=== PATIENT | male | born 1960 | race Caucasian/White ===

== ENCOUNTER 2019-08-19 10:28 | Inpatient (IN) | payer BC ==
[~2019-08-19] VITALS: Ht 175.3 cm; Wt 76.2 kg
--- NOTE | ~2019-08-19 | PROC ---
[address] [address] PROCEDURE REPORT Name: JARETH MIKE Room: [address] IN M.R.#: [id number] Admission: 08/19/19 Attend Phys: Gordon Milligan, Discharge: Date of : 60 Report #: [id number] THIS REPORT FOR: //name// For GI report, please see the Provation report in Perceptive 7 content. By: 0653Medical Records Staff CHARLES /GIDEON
[2019-08-19 10:40] VITALS: BP 143/86
[2019-08-19 10:51] LABS: ICTOTEST (BILI CONFIRMATORY) Negative (Negative); URINE BILIRUBIN 2+ (Negative); URINE BLOOD NEGATIVE (Negative); URINE CLARITY CLEAR; URINE COLOR YELLOW; URINE GLUCOSE-RANDOM NEGATIVE (Negative); URINE KETONES 2+ (Negative); URINE LEUKOCYTES-REFLEX NEGATIVE (Negative); URINE NITRITE-REFLEX NEGATIVE (Negative); URINE PROTEIN 1+ (Negative); URINE SPECIFIC GRAVITY >= 1.030 (1.005-1.030)
[2019-08-19 10:54] LABS: BACTERIA-REFLEX 1-9 Few /HPF (None Seen); CASTS None Seen /LPF (None Seen); CRYSTALS None Seen /LPF (None Seen); MUCUS None Seen strn/LPF (None Seen); SQUAMOUS 4-10 Moderate /LPF (0-3); URINE RBC 0-2 Rare /HPF (0-2); URINE WBC-REFLEX 0-5 Rare /HPF (0-5)
[2019-08-19 10:59] LABS: ABSOLUTE EOSINOPHILS 0.1 thou/uL (0.0-0.7); ABSOLUTE MONOCYTES 1.1 thou/uL (0.0-1.2); ABSOLUTE NEUTROPHILS 8.1 thou/uL (1.6-8.1); BASOPHILS 0.3 %; EOSINOPHILS 0.9 %; HEMATOCRIT 44.7 % (42.0-52.0); HEMOGLOBIN 15.6 gm/dL (14.0-18.0); LYMPHOCYTES 17.3 %; MCH 34.1 pg (26.0-34.0); MCHC 34.9 g/dL (28.0-37.0); MCV 97.8 fL (80.0-100.0); MONOCYTES 9.6 %; MPV 7.7 fl. (7.2-11.1); NUCLEATED RBCS 0 /100WBC; PLATELET COUNT* 313 thou/uL (150-400); POLYS 71.9 %; RBC 4.58 mil/uL (4.50-6.00); RDW-CV 13.8 % (10.5-14.5); WBC 11.3 thou/uL (4.0-11.0)
[2019-08-19 11:30] LABS: ALBUMIN 4.1 g/dL (3.4-5.0); CALCIUM 9.2 mg/dL (8.5-10.1); POTASSIUM 4.3 mmol/L (3.5-5.1); TOTAL BILIRUBIN 1.1 mg/dL (<0.1-1.0); TOTAL PROTEIN 7.9 g/dL (6.4-8.2)
[2019-08-19 13:46] VITALS: BP 133/98
[2019-08-19 14:30] VITALS: BP 137/90
--- NOTE | 2019-08-19 14:38 | EKG ---
[place] [address] ELECTROCARDIOGRAM REPORT Name: JARETH MIKE Room: [address] ADM IN .R.#: [id number] Admission: 08/19/19 Attend Phys: Gordon Milligan, Discharge: Date of : 60 Report #: [id number] THIS REPORT FOR: //name// [facility] ED Test Date: 2019-08-19 Test Time: 11:11:26 Pat Name: JARETH MIKE Department: Room: [facility] Gender: M Medical Assistant Internal Medicine: AINSLEY : 1960 Requested By: Bhargavi Mendez Order Number: [id number] MD: Rafa Varela Measurements Intervals [place] Rate: 79 P: 39 MD: 145 QRS: 19 QRSD: 98 T: 15 QT: 376 QTc: 432 Interpretive Statements Sinus rhythm Probable left atrial enlargement RSR' in V1 or V2, right VCD No previous ECG available for comparison Electronically Signed On 08-19-2019 14:38:38 CDT by Rafa Varela [email or web address] <ELECTRONICALLY SIGNED> By: Rafa Varela MD, [facility] 08/19/19 1438 1111 1111 Rafa Varela MD, FACC /EPI
[2019-08-19 21:01] VITALS: BP 123/82
[2019-08-20 05:13] LABS: HEMATOCRIT 39.7 % (42.0-52.0); MCH 33.5 pg (26.0-34.0); MCHC 33.9 g/dL (28.0-37.0); MCV 98.9 fL (80.0-100.0); MPV 8.7 fl. (7.2-11.1); RBC 4.01 mil/uL (4.50-6.00); RDW-CV 14.3 % (10.5-14.5); WBC 7.7 thou/uL (4.0-11.0)
[2019-08-20 05:16] LABS: HEMOGLOBIN 13.5 gm/dL (14.0-18.0)
[2019-08-20 05:20] LABS: ALBUMIN 3.5 g/dL (3.4-5.0); CALCIUM 8.7 mg/dL (8.5-10.1); CREATININE 0.8 mg/dL (0.6-1.3); MAGNESIUM 2.3 mg/dL (1.8-2.4); POTASSIUM 4.2 mmol/L (3.5-5.1); TOTAL BILIRUBIN 1.1 mg/dL (<0.1-1.0); TOTAL PROTEIN 6.6 g/dL (6.4-8.2)
[2019-08-20 07:30] VITALS: BP 123/83
[2019-08-20 20:00] VITALS: BP 146/93
[2019-08-21 04:44] LABS: CALCIUM 8.5 mg/dL (8.5-10.1); CREATININE 0.7 mg/dL (0.6-1.3); MAGNESIUM 2.2 mg/dL (1.8-2.4); POTASSIUM 4.2 mmol/L (3.5-5.1)
[2019-08-21 11:24] VITALS: BP 146/93
[2019-08-21 16:15] VITALS: BP 137/79
[2019-08-21 20:30] VITALS: BP 122/78
[2019-08-22 03:49] LABS: HEMOGLOBIN 12.2 gm/dL (14.0-18.0); MCH 33.5 pg (26.0-34.0); MCHC 33.9 g/dL (28.0-37.0); MCV 98.8 fL (80.0-100.0); MPV 7.8 fl. (7.2-11.1); RBC 3.65 mil/uL (4.50-6.00); RDW-CV 13.5 % (10.5-14.5); WBC 8.2 thou/uL (4.0-11.0)
[2019-08-22 04:03] LABS: CALCIUM 8.1 mg/dL (8.5-10.1); CREATININE 0.8 mg/dL (0.6-1.3)
[2019-08-22 07:40] VITALS: BP 138/74
[2019-08-22 17:24] VITALS: BP 135/79
[2019-08-22 19:15] VITALS: BP 139/85
[2019-08-23 05:06] LABS: ALBUMIN 2.8 g/dL (3.4-5.0); CALCIUM 8.2 mg/dL (8.5-10.1); CREATININE 0.8 mg/dL (0.6-1.3); PHOSPHORUS* 2.7 mg/dL (2.5-4.9); POTASSIUM 3.7 mmol/L (3.5-5.1)
[2019-08-23 07:20] VITALS: BP 115/69
[2019-08-23 12:59] VITALS: BP 146/93
--- NOTE | 2019-08-23 17:06 | PATH ---
[address] [address] PATHOLOGY RPT PROCEDURE Name: JUSTIN CLINE Room: [address] IN .R.#: [id number] Admission: 08/19/19 Date of : 60 Discharge: Report #: [id number] Path Case #: [id number] [facility] Accession Number: [id number] . 01 Material submitted: . hepatic flexure - BIOPSY HEPATIC FLEXURE MASS . 01 Clinical history: . None provided . 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 SEE COMMENT. . (DANY:pit; 08/23/2019) QTP 08/23/2019 1439 Local . 02 Comment: Reviewed with Dr. Jana Webb who agrees with the diagnosis. Dr. Campos notified on afternoon of 08/23/2019. (DANY:pit; 08/23/2019) . 02 Electronically signed: . Yosef Crowell MD, Pathologist NPI- [id number] . 01 Gross description: . The specimen is received in formalin, labeled "Justin Cline, biopsy hepatic flexure mass" and consists of multiple soft friable fragments of pink-cortez tissue measuring 1.4 x 0.7 x 0.3 cm in aggregate which are entirely submitted in A1. (SDY; 08/22/2019) SYU/SYU 08/22/2019 1506 Local . 02 Pathologist provided ICD-10: C18.3, D12.3, K63.3 . 02 CPT . 108055 Specimen Comment: A courtesy copy of this report has been sent to [phone] Specimen Comment: [phone] Specimen Comment: Report sent to / DR BROOKS Performed at: [address], [place] [id number] [place] [address] PATHOLOGY RPT PROCEDURE Name: JUSTIN CLINE Room: [address] IN .R.#: [id number] Admission: 08/19/19 Date of : 60 Discharge: Report #: [id number] Path Case #: [id number] MD David Whitmore MD Phone: [phone] Performed at: 02 [facility] [address], [place], [place] [id number] MD Yosef Crowell MD Phone: [phone]
[2019-08-23 18:20] VITALS: BP 119/73
[2019-08-23 21:41] VITALS: BP 105/72
[2019-08-24 00:25] VITALS: BP 102/66
[2019-08-24 04:21] VITALS: BP 109/76
[2019-08-24 04:31] LABS: HEMATOCRIT 37.3 % (42.0-52.0); HEMOGLOBIN 12.5 gm/dL (14.0-18.0); MCH 33.4 pg (26.0-34.0); MCHC 33.6 g/dL (28.0-37.0); MCV 99.3 fL (80.0-100.0); MPV 8.1 fl. (7.2-11.1); RBC 3.76 mil/uL (4.50-6.00); RDW-CV 13.7 % (10.5-14.5); WBC 8.8 thou/uL (4.0-11.0)
[2019-08-24 04:49] LABS: ALBUMIN 2.6 g/dL (3.4-5.0); CALCIUM 8.7 mg/dL (8.5-10.1); CREATININE 0.9 mg/dL (0.6-1.3); PHOSPHORUS* 4.6 mg/dL (2.5-4.9); POTASSIUM 4.8 mmol/L (3.5-5.1)
[2019-08-24 07:25] VITALS: BP 107/67
[2019-08-24 16:47] VITALS: BP 111/68
[2019-08-24 19:28] VITALS: BP 114/77
[2019-08-24 23:04] VITALS: BP 106/71
[2019-08-25 05:50] VITALS: BP 124/81
[2019-08-25 07:40] VITALS: BP 113/80
--- NOTE | 2019-08-25 08:58 | CON ---
[address] [address] CONSULTATION Name: JARETH MIKE Room: [address] IN .R.#: [id number] Admission: 08/19/19 Attend Phys: Gordon Milligan, Discharge: Date of : 60 Report #: [id number] THIS REPORT FOR: //name// CC: Mehrdad Milligan DATE OF SERVICE: 08/22/2019 REASON FOR CONSULTATION: Colon mass. REQUESTING PHYSICIAN: Dr. Gordon Milligan. HISTORY OF PRESENT ILLNESS: The patient is a pleasant 59-year-old man without significant past medical history who developed abdominal bloating, occasional nausea and vomiting last week. He went to see primary care physician, Dr. Mckinley. Dr. Mckinley was not available. Dr. Mckinley's partner evaluated him and sent him to the Emergency Room. He had an abdominal CT scan in the hospital, which showed possible mass in the hepatic flexure. The patient was admitted to the hospital. GI was consulted. He had a colonoscopy yesterday, which showed some circumferential lesion in the hepatic flexure. Biopsy was done. Pathology pending status post stent was deployed. Surgical consult and oncology consult was requested. He has been evaluated by Dr. Kraft. He is scheduled to have surgery tomorrow. He is doing quite well. He does not have complaints of nausea or vomiting today. He has complaints of abdominal bloating, but no significant pain or fever. Denies weight loss. PAST MEDICAL HISTORY: Unremarkable other than smoking for more than 40 years. SOCIAL HISTORY: He is single, does not have children, and lives alone. He smokes a pack a day, has been smoking since teenage years. He does not drink alcohol excessively, he tells me. 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 FAMILY HISTORY: Positive for colon cancer in mother. Mother had colon cancer more than 10 years ago, had a colonoscopy at that time. He says his mother did well, did not of colon cancer. She is alive. There is no other family history of other cancers. REVIEW OF SYSTEMS: HEENT: Negative. CARDIOVASCULAR: No chest pain or palpitations. RESPIRATORY: No shortness of breath. GASTROINTESTINAL: See above. GENITOURINARY: No dysuria. NEUROLOGIC: Negative. PSYCHIATRIC: Negative. [place]IN: [place] [address] CONSULTATION Name: JARETH MIKE Room: [address]#: [id number] Admission: 08/19/19 Attend Phys: Gordon Milligan, Discharge: Date of : 60 Report #: [id number] HEMATOLOGICAL: No bleeding, bruising. PHYSICAL EXAMINATION: GENERAL: Reveals thin man, not in acute distress. VITAL SIGNS: Blood pressure 138/74, heart rate is 68, temperature 98.3, respirations 18. HEENT: Does not reveal thrush. NECK: Supple. CARDIAC: Normal S1, S2. LUNGS: Clear. ABDOMEN: Somewhat distended, but no rebound, no guarding. MENTAL STATUS: Alert and oriented x 3. SKIN: No rash. There is no peripheral lymphadenopathy. LABORATORY DATA: White count 8.2, hemoglobin 12.2, platelets 240, MCV 98.8, RDW 13.3. Sodium 138, potassium 4.2, BUN 19, creatinine 0.8. LFTs normal. CEA is pending. Pathology pending. CT of abdomen and pelvis reviewed, does not show convincing evidence of metastatic disease, shows mass in the hepatic flexure and there is distention of small bowel or proximal colon. ASSESSMENT AND PLAN: Colon mass clinically very suspicious for colon cancer. Pathology not available. We discussed prognosis and treatment options of colon cancer, preliminary review. We discussed staging of colon cancer, discussed indications for adjuvant chemotherapy. He had some questions, questions were answered. I am planning to see him after surgery when final staging is available. At that time, I will give him final recommendations regarding adjuvant therapy and prognosis. CEA is pending. There are no signs of iron deficiency anemia. Thank you very much for allowing me to participate in the care of this patient. <ELECTRONICALLY SIGNED> By: Tucker Ortiz MD 08/25/19 0858 1206 [id number] Ortiz MD /nt
[2019-08-25 11:07] LABS: ALBUMIN 2.4 g/dL (3.4-5.0); CALCIUM 8.5 mg/dL (8.5-10.1); PHOSPHORUS* 5.5 mg/dL (2.5-4.9); POTASSIUM 4.9 mmol/L (3.5-5.1)
[2019-08-25 11:23] LABS: CREATININE 1.9 mg/dL (0.6-1.3)
[2019-08-25 16:08] LABS: HEMATOCRIT 43.9 % (42.0-52.0); HEMOGLOBIN 14.7 gm/dL (14.0-18.0); MCH 33.6 pg (26.0-34.0); MCHC 33.4 g/dL (28.0-37.0); MCV 100.7 fL (80.0-100.0); MPV 9.4 fl. (7.2-11.1); RBC 4.36 mil/uL (4.50-6.00); RDW-CV 14.2 % (10.5-14.5); WBC 11.3 thou/uL (4.0-11.0)
[2019-08-25 20:36] VITALS: BP 115/81
[2019-08-26] VITALS: BP 98/74
[2019-08-26 03:57] VITALS: BP 103/74
[2019-08-26 04:31] LABS: HEMATOCRIT 45.2 % (42.0-52.0); HEMOGLOBIN 15.4 gm/dL (14.0-18.0); MCH 33.9 pg (26.0-34.0); MCV 99.9 fL (80.0-100.0); MPV 8.8 fl. (7.2-11.1); RBC 4.53 mil/uL (4.50-6.00); RDW-CV 13.8 % (10.5-14.5); WBC 10.8 thou/uL (4.0-11.0)
[2019-08-26 04:41] LABS: ALBUMIN 2.1 g/dL (3.4-5.0); MAGNESIUM 1.8 mg/dL (1.8-2.4); PHOSPHORUS* 8.2 mg/dL (2.5-4.9); POTASSIUM 5.3 mmol/L (3.5-5.1)
[2019-08-26 04:42] LABS: CREATININE 3.9 mg/dL (0.6-1.3)
[2019-08-26 07:20] VITALS: BP 99/75
[2019-08-26 16:33] VITALS: BP 146/93
[2019-08-26 20:15] VITALS: BP 122/61
[2019-08-27] VITALS: BP 116/73
[2019-08-27 04:00] VITALS: BP 120/80
[2019-08-27 05:33] LABS: HEMATOCRIT 36.2 % (42.0-52.0); MCH 33.6 pg (26.0-34.0); MCHC 34.3 g/dL (28.0-37.0); MCV 97.7 fL (80.0-100.0); MPV 8.7 fl. (7.2-11.1); NUCLEATED RBCS 0 /100WBC; PLATELET COUNT* 256 thou/uL (150-400); RBC 3.71 mil/uL (4.50-6.00); WBC 9.6 thou/uL (4.0-11.0)
[2019-08-27 05:36] LABS: HEMOGLOBIN 12.4 gm/dL (14.0-18.0)
[2019-08-27 05:39] LABS: CALCIUM 7.6 mg/dL (8.5-10.1); MAGNESIUM 1.9 mg/dL (1.8-2.4); POTASSIUM 5.6 mmol/L (3.5-5.1)
[2019-08-27 06:14] LABS: CREATININE 2.4 mg/dL (0.6-1.3)
[2019-08-27 06:26] LABS: ABSOLUTE LYMPHOCYTES 0.2 thou/uL (0.8-5.3); ABSOLUTE MONOCYTES 0.2 thou/uL (0.0-1.2); ABSOLUTE NEUTROPHILS 9.2 thou/uL (1.6-8.1); PLATELET ESTIMATE ADEQUATE
[2019-08-27 16:00] VITALS: BP 132/77
[2019-08-27 20:30] VITALS: BP 136/87
[2019-08-28 00:14] VITALS: BP 124/76
[2019-08-28 03:45] VITALS: BP 140/83
[2019-08-28 16:52] VITALS: BP 134/79
[2019-08-28 21:15] VITALS: BP 137/79
[2019-08-28 23:46] VITALS: BP 128/81
[2019-08-29 02:20] VITALS: BP 124/69
[2019-08-29 07:20] VITALS: BP 146/77
[2019-08-29 10:26] LABS: HEMOGLOBIN 11.1 gm/dL (14.0-18.0); MCH 34.1 pg (26.0-34.0); MCHC 34.8 g/dL (28.0-37.0); MPV 7.5 fl. (7.2-11.1); RBC 3.26 mil/uL (4.50-6.00); RDW-CV 14.1 % (10.5-14.5); WBC 10.7 thou/uL (4.0-11.0)
[2019-08-29 10:37] LABS: ALBUMIN 1.5 g/dL (3.4-5.0); CALCIUM 7.8 mg/dL (8.5-10.1); MAGNESIUM 2.3 mg/dL (1.8-2.4); PHOSPHORUS* 2.6 mg/dL (2.5-4.9); POTASSIUM 4.4 mmol/L (3.5-5.1)
[2019-08-29 10:38] LABS: CREATININE 0.7 mg/dL (0.6-1.3)
--- NOTE | 2019-08-29 12:06 | PATH ---
[address] [address] PATHOLOGY RPT PROCEDURE Name: CEEJUSTIN Mayte Room: [address] IN M.R.#: [id number] Admission: 08/19/19 Date of : 60 Discharge: Report #: [id number] Path Case #: [id number] [facility] Accession Number: [id number] . 01 Material submitted: . colon - RIGHT COLON. Modifiers: right . 01 Clinical history: . Pre-op diagnosis: Colon obstruction Post-op diagnosis: Right colon mass . 02 Diagnosis: Colon, right, hemicolectomy: - Invasive moderately to poorly differentiated adenocarcinoma, 3.5 cm. - Tumor location: Hepatic flexure. - Adenocarcinoma invades through the muscularis propria and into the pericolonic adipose tissue. - Margins of excision: Negative; closest mucosal margin is distal which is 7.0 cm away. - Hyperplastic polyp 1.0 cm. - Submucosal lipoma, 1.9 cm. - Appendix with no pathologic diagnosis. - Metastatic adenocarcinoma present in 2 out of 17 pericolonic lymph nodes (2/17). . (Please see synoptic report) . (ZAIN:lizeth; 08/26/2019) . . Surgical Pathology Cancer Case Summary Procedure ___ Right colectomy . Tumor Site ___ Hepatic flexure . Tumor Size Greatest dimension (centimeters): 3.5 cm . Histologic Type ___ Adenocarcinoma . Histologic Grade ___ Other (specify): Poorly differentiated . Tumor Extension ___ Tumor invades through the muscularis propria [place] [address] PATHOLOGY RPT PROCEDURE Name: JUSTIN CLINE Room: [address] IN [facility]#: [id number] Admission: 08/19/19 Date of : 60 Discharge: Report #: [id number] Path Case #: [id number] . Margins ___ All margins are uninvolved by invasive carcinoma Margins examined: Proximal mucosal, distal mucosal, and radial. + Distance of tumor from closest mucosal margin: 7 cm (distal) . Proximal Margin ___ Uninvolved by invasive carcinoma . Distal Margin ___ Uninvolved by invasive carcinoma . Treatment Effect ___ No known presurgical therapy . Lymphovascular Invasion ___ Focal area suspicious for lymphovascular invasion are present . + Perineural Invasion + ___ Not identified . Regional Lymph Nodes Number of Lymph Nodes Involved: 2 Number of Lymph Nodes Examined: 17 . Pathologic Stage Classification (pTNM, AJCC 8th Edition) Primary Tumor (pT) ___ pT3: Tumor invades through the muscularis propria into the pericolorectal tissues . Regional Lymph Nodes (pN) ___ pN1: Regional lymph node metastasis (1-3 regional lymph nodes are positive) MBR 08/29/2019 1152 Local . 02 Electronically signed: . Lucio Yousif MD, Pathologist NPI- [id number] . 01 Gross description: . The specimen is received in formalin, labeled "Justin Cline, right colon". Received is a right hemicolectomy specimen consisting of a segment of small bowel measuring 12.1 cm in length by 2.9 cm in diameter contiguous with a segment of colon measuring 13.8 cm in length and ranges in diameter from 2.8 to 5.5 cm. Both margins are stapled closed. The serosal surface of the small bowel is pink-edmonds and glistening in appearance. The serosal surface of the colon is pink-cortez to cortez-edmonds and glistening in appearance. The attached pericolic fat measures up to 5.5 [place] [address] PATHOLOGY RPT PROCEDURE Name: JUSTIN CLINE Room: [address] IN ..#: [id number] Admission: 08/19/19 Date of : 60 Discharge: Report #: [id number] Path Case #: [id number] cm in thickness. The mesenteric margin is inked orange. There are two blue wire stents present, which are attached suture to each other and one of which is loosely attached to the colonic mucosa, measuring 10.2 cm in length by 3.0 cm in diameter each. Near the distal margin, there is a moderate amount of attached omentum measuring 6.1 x 2.5 x 2.0 cm. The specimen is opened along the antimesenteric line and placed into formalin for overnight fixation prior to sectioning. (CAA; 08/24/2019) . After adequate overnight fixation, further opening of the specimen reveals light cortez to pink-cortez, slightly edematous-appearing mucosa within the small bowel. The ileocecal valve is light cortez in appearance. 3.1 cm distal to the ileocecal valve, there is a well-circumscribed, focally ulcerated light brown lesion measuring 3.5 x 2.5 cm, which is 7.0 cm from the closest margin (distal) and 15.2 cm from the proximal margin. The opposing serosal and fatty surfaces are inked black. Sectioning reveals the mass to grossly extend through the muscularis propria and grossly approach the inked serosal surface, as well as adjacent omentum, with a maximum depth of invasion of 1.6 cm. The mass is 5.0 cm from the mesenteric margin. 2.1 cm proximal to the mass, there is a well-circumscribed, raised and pink-cortez possible polyp measuring 1.0 x 0.6 cm, which is 1.5 cm distal to the ileocecal valve. 1.5 cm distal to the mass, there is a second light cortez, edematous-appearing possible polyp measuring 1.9 x 1.7 cm. The opposing fatty surface of this possible polyp is inked blue. The remainder of the colonic mucosa is light cortez to pink-cortez in appearance with slightly edematous-appearing architectural folds. . The appendix is present measuring 6.3 cm in length by 1.0 cm in diameter. Sectioning through the appendix reveals a pinpoint to patent lumen. Also received within the specimen container is a separate the submitted segment of yellow-cortez omentum measuring 13.5 x 5.9 x 1.5 cm in greatest dimensions. Sectioning reveals pale-cortez, lobulated cut surfaces with no grossly distinct nodules or lesions. Dissection and palpation of the attached pericolic fat reveals 16 readily identifiable lymph nodes ranging in size from 0.4 to 1.6 cm in maximum dimensions. The specimen is submitted representatively as follows: . A1 proximal margin, en face A2 distal margin, en face A3 perpendicular section through mesenteric margin (orange ink) A4 traveling representative section of mass to show relationship with inked serosal surface and adjacent omentum A5 traveling representative section of mass to show relationship with adjacent omentum A6-A8 additional traveling representative sections of mass A9 edematous polyp proximal to mass, bisected A10-A12 traveling representative sections of possible polyp distal to mass A13 small [place] [address] PATHOLOGY RPT PROCEDURE Name: JUSTIN CLINE Room: [address] IN [facility]#: [id number] Admission: 08/19/19 Date of : 60 Discharge: Report #: [id number] Path Case #: [id number] A14 ileocecal valve A15 uninvolved colonic mucosa A16 traveling representative sections of omentum A17-A18 traveling representative sections of appendix, to include proximal margin and bisected tip A19-A21 intact lymph nodes A22-A25 one bisected lymph node in each cassette. (CAA; 08/25/2019) QAC/QA 08/29/2019 1152 Local . 02 Pathologist provided ICD-10: C18.3, K63.5, D17.5, C77.2 . 02 CPT . 669115 Specimen Comment: A courtesy copy of this report has been sent to [phone] Specimen Comment: [phone], Specimen Comment: Report sent to ,DR ALARCON / DR BROOKS Performed at: [address], [place], [place] [id number] MD David Whitmore MD Phone: [phone] Performed at: 02 [facility] [address], [place], [place] [id number] MD Yosef Crowell MD Phone: [phone]
[2019-08-29 18:24] VITALS: BP 147/92
[2019-08-29 19:24] VITALS: BP 154/94
[2019-08-30 05:58] LABS: HEMOGLOBIN 10.9 gm/dL (14.0-18.0); MCH 33.5 pg (26.0-34.0); MCHC 34.1 g/dL (28.0-37.0); MPV 7.6 fl. (7.2-11.1); RBC 3.26 mil/uL (4.50-6.00); RDW-CV 14.1 % (10.5-14.5); WBC 13.8 thou/uL (4.0-11.0)
[2019-08-30 06:13] LABS: ALBUMIN 1.4 g/dL (3.4-5.0); CALCIUM 7.8 mg/dL (8.5-10.1); CREATININE 0.7 mg/dL (0.6-1.3); MAGNESIUM 1.9 mg/dL (1.8-2.4); PHOSPHORUS* 3.1 mg/dL (2.5-4.9); POTASSIUM 4.4 mmol/L (3.5-5.1)
[2019-08-30 07:48] VITALS: BP 150/90
[2019-08-30 16:00] VITALS: BP 115/66
[2019-08-30 20:37] VITALS: BP 153/92
[2019-08-30 23:14] VITALS: BP 147/92
[2019-08-31 06:59] LABS: HEMATOCRIT 33.5 % (42.0-52.0); HEMOGLOBIN 11.4 gm/dL (14.0-18.0); MCH 33.3 pg (26.0-34.0); MCHC 34.2 g/dL (28.0-37.0); MCV 97.6 fL (80.0-100.0); MPV 7.6 fl. (7.2-11.1); RBC 3.43 mil/uL (4.50-6.00); WBC 15.3 thou/uL (4.0-11.0)
[2019-08-31 07:09] LABS: ALBUMIN 1.5 g/dL (3.4-5.0); CALCIUM 7.9 mg/dL (8.5-10.1); CREATININE 0.6 mg/dL (0.6-1.3); PHOSPHORUS* 3.4 mg/dL (2.5-4.9); POTASSIUM 4.5 mmol/L (3.5-5.1)
[2019-08-31 08:20] VITALS: BP 138/89
[2019-08-31 20:07] VITALS: BP 137/84
[2019-09-01 04:05] VITALS: BP 128/83
[2019-09-01 04:31] LABS: HEMATOCRIT 33.7 % (42.0-52.0); HEMOGLOBIN 11.3 gm/dL (14.0-18.0); MCH 32.8 pg (26.0-34.0); MCHC 33.7 g/dL (28.0-37.0); MCV 97.3 fL (80.0-100.0); MPV 7.7 fl. (7.2-11.1); RBC 3.46 mil/uL (4.50-6.00); RDW-CV 14.1 % (10.5-14.5); WBC 14.9 thou/uL (4.0-11.0)
[2019-09-01 04:50] LABS: ALBUMIN 1.5 g/dL (3.4-5.0); CALCIUM 7.9 mg/dL (8.5-10.1); CREATININE 0.7 mg/dL (0.6-1.3); PHOSPHORUS* 3.7 mg/dL (2.5-4.9); POTASSIUM 4.4 mmol/L (3.5-5.1)
[2019-09-01 07:15] VITALS: BP 135/80
--- NOTE | 2019-09-01 11:57 | CON ---
[address] [address] CONSULTATION Name: JARETH MIKE Room: [address] IN .R.#: [id number] Admission: 08/19/19 Attend Phys: Gordon Milligan, Discharge: Date of : 60 Report #: [id number] THIS REPORT FOR: //name// CC: Mehrdad Milligan DATE OF SERVICE: 08/31/2019 ATTENDING PHYSICIAN: Dr. Frey REASON FOR EVALUATION: Suspected intra-abdominal infection postoperative partial colectomy. HISTORY OF PRESENT ILLNESS: Chart reviewed, the patient examined. This is a 59-year-old without significant medical history who presented on 08/19/2019, with abdominal pain and pressure for roughly 1 week prior, had been experiencing emesis as well, poor p.o. intake, was evaluated including imaging, which showed diffuse distention of the small bowel and proximal colon. There is a question of narrowing and partial obstruction. Due to concern about possible mass, did undergo evaluation by Surgery who did proceed with laparoscopic right hemicolectomy with ileocolonic anastomosis. Path confirmed adenocarcinoma, moderately differentiated. Postop course was complicated by perforated small bowel with a second surgery, exploratory laparotomy with oversewing of small bowel perforation on 08/26/2019, seen postop, been maintained n.p.o., has a nasogastric tube in place, formerly been on increasing abdominal distention. Empirically started on piperacillin and tazobactam. He has not had documented fevers, hemodynamically is relatively stable. He is not overtly encephalopathic, some kzxq-hr-ajszaowp distress. ALLERGIES: None known. MEDICATIONS: Include Zosyn now, diphenhydramine, lorazepam, ondansetron, enoxaparin, hydromorphone and fentanyl as needed. PAST MEDICAL HISTORY: Previous left finger surgery, right arm tendon repair. SOCIAL HISTORY: Smokes a pack a day of cigarettes, occasional ethanol, no illicit drug use. FAMILY HISTORY: Noncontributory. REVIEW OF SYSTEMS: Significant pulmonary-related complaints, otherwise, unremarkable. PHYSICAL EXAMINATION: GENERAL: He appears somewhat chronically ill, [place] [address] CONSULTATION Name: JARETH MIKE Mayte Room: [address]#: [id number] Admission: 08/19/19 Attend Phys: Gordon Milligan, Discharge: Date of : 60 Report #: [id number] VITAL SIGNS: Temperature 97.8, pulse 84, respirations 18, blood pressure is 138/89. SKIN: Warm, dry, no rashes. HEENT: Normocephalic. Extraocular muscles intact. NECK: Supple. LUNGS: Somewhat diminished overall, few scattered crackles at the bases. HEART: Regular, may have soft systolic murmur. ABDOMEN: Distended, mildly firm. There is some tenderness because of overt peritoneal signs. There are stab wounds from the laparoscopy. GENITOURINARY: Deferred. RECTAL: Deferred. LABORATORY DATA: Prealbumin is 16.4. Electrolytes: Sodium 137, potassium 4.5, chloride 103, bicarbonate is 26, anion gap of 8, BUN and creatinine 22 and 0.6, glucose of 93, albumin 1.5. Estimated GFR 138. CBC: White count of 15.3, H and H of 11.4 and 33.5, platelets of 268. Path reviewed as described above. Right colon showed moderately to poorly differentiated adenocarcinoma extended through the muscularis propria into the pericolonic adipose tissue, metastatic adenocarcinoma present, 2/17 pericolonic lymph nodes. There are no available cultures. ASSESSMENT: Postop small bowel perforation. At this point, I think given the complexity of his situation as well as the likely lack of reserve, would continue empiric therapy. Piperacillin and tazobactam will give us reasonable coverage. At this point, there is no evidence of intra-abdominal abscess. We will see how he does clinically, advance his diet as allowed. We will add incentive spirometry. He is certainly at risk for nosocomial related infectious complications. Thank you. We will follow. <ELECTRONICALLY SIGNED> By: Josue Oconnor MD 09/01/19 1157 1554 [id number] Oconnor MD /nt
[2019-09-01 14:35] VITALS: BP 135/80
[2019-09-01 16:11] VITALS: BP 132/81
[2019-09-01 20:00] VITALS: BP 136/89
[2019-09-01 22:51] VITALS: BP 131/77
[2019-09-02 06:00] VITALS: BP 136/83
[2019-09-02 06:45] LABS: HEMATOCRIT 31.1 % (42.0-52.0); HEMOGLOBIN 10.6 gm/dL (14.0-18.0); MCH 33.2 pg (26.0-34.0); MCV 97.7 fL (80.0-100.0); MPV 7.9 fl. (7.2-11.1); NUCLEATED RBCS 0 /100WBC; PLATELET COUNT* 330 thou/uL (150-400); RBC 3.18 mil/uL (4.50-6.00); WBC 15.9 thou/uL (4.0-11.0)
[2019-09-02 07:10] VITALS: BP 135/86
[2019-09-02 07:12] LABS: ABSOLUTE EOSINOPHILS 0.8 thou/uL (0.0-0.7); ABSOLUTE LYMPHOCYTES 1.9 thou/uL (0.8-5.3); ABSOLUTE MONOCYTES 0.8 thou/uL (0.0-1.2); ABSOLUTE NEUTROPHILS 12.4 thou/uL (1.6-8.1); ALBUMIN 1.3 g/dL (3.4-5.0); ANISOCYTOSIS 1+; CALCIUM 7.7 mg/dL (8.5-10.1); CREATININE 0.7 mg/dL (0.6-1.3); PLATELET ESTIMATE ADEQUATE; POIKILOCYTOSIS 1+; POTASSIUM 4.4 mmol/L (3.5-5.1); TOTAL BILIRUBIN 0.5 mg/dL (<0.1-1.0); TOTAL PROTEIN 5.4 g/dL (6.4-8.2)
--- NOTE | 2019-09-02 11:11 | CON ---
[address] [address] CONSULTATION Name: JARETH MIKE Room: [address] IN ..#: [id number] Admission: 08/19/19 Attend Phys: Gordon Milligan, Discharge: Date of : 60 Report #: [id number] THIS REPORT FOR: //name// CC: Mehrdad Milligan DATE OF SERVICE: 08/20/2019 HISTORY OF PRESENT ILLNESS: This is a pleasant 59-year-old male with family history of colon cancer who is presenting with abdominal distention. The patient reports the distention began about 1 week back and have progressively worsened over this time. The patient reports associated and subjective sensation of fever and chills as well as abdominal pain. The patient reports nausea and vomiting, and loose stools about 4-5 times per day over the last week. PAST MEDICAL HISTORY: Nonsignificant. PAST SURGICAL HISTORY: He had a left finger surgery, right arm tendon repair. SOCIAL HISTORY: The patient reports smoking a pack of cigarettes every day. Takes alcohol about once a month. Denies any recreational drugs. FAMILY HISTORY: The patient's mother was diagnosed with colon cancer. The patient reports that he had a colonoscopy more than 10 years back and that was normal. REVIEW OF SYSTEMS: Negative except for what was mentioned in the HPI. PHYSICAL EXAMINATION: GENERAL: The patient is alert, awake, oriented x 3. HEENT: Pupils are equal, round, reactive to light and accommodation. Mucous membranes are moist. There is no congestion. LUNGS: Clear to auscultation bilaterally. CARDIOVASCULAR: Rate and rhythm regular, S1, S2 present. ABDOMEN: Soft. There is no distention, guarding or rigidity. EXTREMITIES: Warm, well perfused. LABORATORY DATA: Hemoglobin 15.6, hematocrit 44.7, platelet count 313, WBC count 11.3. Sodium 134, potassium 4.3, chloride 96, bicarbonate 27, BUN 22, creatinine 1, total bilirubin 1.1, AST 22, ALT 28, alkaline phosphatase 75. IMAGING: Abdomen and pelvis CT, this demonstrates the presence of diffuse distention of the small bowel and proximal colon suspicious with an apple core lesion in the proximal hepatic flexure, moderate formed stool [place] [address] CONSULTATION Name: JARETH MIKE Room: [address] IN [facility]#: [id number] Admission: 08/19/19 Attend Phys: Gordon Milligan, Discharge: Date of : 60 Report #: [id number] ASSESSMENT AND PLAN: A pleasant 59-year-old male with family history of colon cancer, history of smoking, who presents with abdominal distention. The patient was found to have a possible apple core lesion in the hepatic flexure. We will need to perform colonoscopy with possible stenting and make further recommendations based on the results of the procedure. <ELECTRONICALLY SIGNED> By: Rip Campos MD 09/02/19 1111 1430 1447Rip Campos MD /nimo
[2019-09-02 15:28] VITALS: BP 125/82
[2019-09-02 19:55] VITALS: BP 134/85
[2019-09-03 01:00] VITALS: BP 130/74
[2019-09-03 06:00] VITALS: BP 135/84
[2019-09-03 07:10] VITALS: BP 123/79
[2019-09-03 20:02] VITALS: BP 141/82
[2019-09-04 07:44] VITALS: BP 110/64
[2019-09-04 09:52] LABS: HEMATOCRIT 32.2 % (42.0-52.0); MCH 33.2 pg (26.0-34.0); MCV 97.4 fL (80.0-100.0); MPV 8.5 fl. (7.2-11.1); RBC 3.31 mil/uL (4.50-6.00); RDW-CV 14.3 % (10.5-14.5); WBC 24.4 thou/uL (4.0-11.0)
[2019-09-04 10:06] LABS: CALCIUM 7.6 mg/dL (8.5-10.1); CREATININE 0.7 mg/dL (0.6-1.3); POTASSIUM 4.3 mmol/L (3.5-5.1)
[2019-09-04 16:00] VITALS: BP 125/74
[2019-09-04 21:06] VITALS: BP 110/73
[2019-09-05] VITALS (15 sets, daily range): BP systolic 72–170; BP diastolic 34–97
[2019-09-05 09:43] LABS: ABSOLUTE EOSINOPHILS 0.1 thou/uL (0.0-0.7); ABSOLUTE LYMPHOCYTES 0.6 thou/uL (0.8-5.3); ABSOLUTE MONOCYTES 0.3 thou/uL (0.0-1.2); ABSOLUTE NEUTROPHILS 10.7 thou/uL (1.6-8.1); BASOPHILS 0.3 %; HEMOGLOBIN 12.1 gm/dL (14.0-18.0); LYMPHOCYTES 5.3 %; MCH 32.5 pg (26.0-34.0); MCHC 33.6 g/dL (28.0-37.0); MCV 96.9 fL (80.0-100.0); MONOCYTES 2.9 %; MPV 8.3 fl. (7.2-11.1); NUCLEATED RBCS 0 /100WBC; POLYS 90.5 %; RBC 3.71 mil/uL (4.50-6.00); WBC 11.8 thou/uL (4.0-11.0)
[2019-09-05 09:44] LABS: PLATELET COUNT* 518 thou/uL (150-400)
[2019-09-05 09:48] LABS: CALCIUM 7.5 mg/dL (8.5-10.1); POTASSIUM 4.5 mmol/L (3.5-5.1)
[2019-09-05 09:51] LABS: ALBUMIN 1.2 g/dL (3.4-5.0); PHOSPHORUS* 2.7 mg/dL (2.5-4.9)
[2019-09-05 10:15] LABS: ALBUMIN 1.2 g/dL (3.4-5.0); CALCIUM 7.6 mg/dL (8.5-10.1); POTASSIUM 4.9 mmol/L (3.5-5.1); TOTAL BILIRUBIN 1.2 mg/dL (<0.1-1.0); TOTAL PROTEIN 4.8 g/dL (6.4-8.2)
[2019-09-05 19:01] LABS: HEMATOCRIT 36.9 % (42.0-52.0); HEMOGLOBIN 12.3 gm/dL (14.0-18.0); MCH 33.1 pg (26.0-34.0); MCHC 33.4 g/dL (28.0-37.0); MPV 8.7 fl. (7.2-11.1); NUCLEATED RBCS 0 /100WBC; RBC 3.73 mil/uL (4.50-6.00); RDW-CV 14.4 % (10.5-14.5); WBC 11.2 thou/uL (4.0-11.0)
[2019-09-05 19:02] LABS: PLATELET COUNT* 437 thou/uL (150-400)
[2019-09-05 19:08] LABS: CREATININE 1.1 mg/dL (0.6-1.3)
[2019-09-05 19:09] LABS: POTASSIUM 6.1 mmol/L (3.5-5.1)
[2019-09-05 19:11] LABS: ALBUMIN 1.2 g/dL (3.4-5.0); PHOSPHORUS* 4.6 mg/dL (2.5-4.9)
[2019-09-05 19:28] LABS: ABSOLUTE EOSINOPHILS 0.1 thou/uL (0.0-0.7); ABSOLUTE LYMPHOCYTES 1.3 thou/uL (0.8-5.3); ABSOLUTE MONOCYTES 0.1 thou/uL (0.0-1.2); ABSOLUTE NEUTROPHILS 9.6 thou/uL (1.6-8.1); METAMYELOCYTES 3 %; MYELOCYTES 3 %; PLATELET ESTIMATE ADEQUATE
[2019-09-05 20:01] LABS: BE -7.7 mmol/L (-2 to +3); PCO2 33.3 mmHg (35.0-45.0); PO2 89.2 mmHg (75.0-100.0)
[2019-09-05 22:10] LABS: CALCIUM 7.2 mg/dL (8.5-10.1); CREATININE 1.2 mg/dL (0.6-1.3); POTASSIUM 5.7 mmol/L (3.5-5.1)
[2019-09-05 22:14] LABS: ALBUMIN 1.2 g/dL (3.4-5.0); PHOSPHORUS* 4.7 mg/dL (2.5-4.9)
[2019-09-06] VITALS (40 sets, daily range): BP systolic 87–111; BP diastolic 50–74
[2019-09-06 05:13] LABS: HEMATOCRIT 35.9 % (42.0-52.0); HEMOGLOBIN 11.9 gm/dL (14.0-18.0); MCH 32.7 pg (26.0-34.0); MCHC 33.2 g/dL (28.0-37.0); MCV 98.3 fL (80.0-100.0); MPV 8.7 fl. (7.2-11.1); RBC 3.65 mil/uL (4.50-6.00); RDW-CV 14.3 % (10.5-14.5); WBC 16.8 thou/uL (4.0-11.0)
[2019-09-06 05:21] LABS: CALCIUM 7.3 mg/dL (8.5-10.1); CREATININE 1.4 mg/dL (0.6-1.3); MAGNESIUM 1.9 mg/dL (1.8-2.4); POTASSIUM 5.2 mmol/L (3.5-5.1)
[2019-09-06 08:27] LABS: BE -6.3 mmol/L (-2 to +3); PCO2 28.2 mmHg (35.0-45.0); PO2 113.5 mmHg (75.0-100.0); pH 7.401 (7.340-7.450)
[2019-09-07] VITALS (36 sets, daily range): BP systolic 98–141; BP diastolic 55–82
[2019-09-07 05:18] LABS: HEMATOCRIT 23.9 % (42.0-52.0); MCH 32.6 pg (26.0-34.0); MCHC 33.6 g/dL (28.0-37.0); MCV 97.1 fL (80.0-100.0); RBC 2.47 mil/uL (4.50-6.00); RDW-CV 14.2 % (10.5-14.5); WBC 12.7 thou/uL (4.0-11.0)
[2019-09-07 05:22] LABS: HEMOGLOBIN 8.1 gm/dL (14.0-18.0)
[2019-09-07 05:28] LABS: ALBUMIN 0.9 g/dL (3.4-5.0); CALCIUM 7.5 mg/dL (8.5-10.1); CREATININE 0.9 mg/dL (0.6-1.3); MAGNESIUM 2.2 mg/dL (1.8-2.4); PHOSPHORUS* 2.1 mg/dL (2.5-4.9); POTASSIUM 3.7 mmol/L (3.5-5.1)
[2019-09-07 05:30] LABS: INR 1.1; PROTIME 11.1 Seconds (9.20-11.50)
--- NOTE | 2019-09-07 08:01 | CON ---
[address] [address] CONSULTATION Name: JARETH MIKE Room: [address] IN M.R.#: [id number] Admission: 08/19/19 Attend Phys: Gordon Milligan, Discharge: Date of : 60 Report #: [id number] THIS REPORT FOR: //name// CC: Mehrdad Milligan REASON FOR CONSULTATION: Respiratory failure. REFERRING PHYSICIAN: Dr. Robertson. HISTORY OF PRESENT ILLNESS: The patient was intubated, on sedation during my visit. I reviewed medical records and discussed with the nursing staff. This is a 59-year-old male patient, who was admitted to this facility on 08/19/2019 with a chief complaint of abdominal pain. Apparently, he saw his primary care physician prior to emergency room visit, who recommended for him to come to the emergency room. In the emergency room, he had a CT scan of the abdomen because of the abdominal complaints. He was found to have a mass in the hepatic flexure in his colon. He was admitted to the hospital and Gastroenterology evaluated him. He underwent colonoscopy and found to have a lesion in the hepatic flexure. A biopsy was done and a stent was placed. The pathology came back as cancer. He ended up going back to the operating room for laparoscopic-assisted right hemicolectomy on 08/23/2019. Then, he had a repeat exploratory laparotomy on 08/26/2019. Yesterday on 09/05/2019, he was taken back to the operating room because of concerns about fascial dehiscence and developing septic shock. He underwent an ileostomy and G-tube placement with a drain placement. He came back to the Intensive Care Unit, intubated, on the ventilator. He was on vasopressors. During my visit, he was on propofol, fentanyl drip, and he was on 12 mcg of Levophed. He opened his eyes when stimulated on the sedation mentioned, but he did not follow commands. No significant secretion per RN. He was on assist control ventilation during my visit. Also during this hospitalization, he was evaluated by Infectious Disease and Neurology, who are following along. PAST MEDICAL HISTORY: Per the records, he smoked for almost 40 years. SOCIAL HISTORY: History of smoking as mentioned above 1 pack per day for 40 years, started smoking when he was a teenager. He does not drink alcohol excessively and does not abuse drugs per the records. PAST SURGICAL HISTORY: He underwent the surgery as mentioned above including 2 laparoscopic surgeries and the wound dehiscence surgery yesterday. FAMILY HISTORY: Cancer in his mother. REVIEW OF SYSTEMS: At this point, not obtainable due [place] [address] CONSULTATION Name: JARETH MIKE Room: [address] IN M.R.#: [id number] Admission: 08/19/19 Attend Phys: Gordon Milligan, Discharge: Date of : 60 Report #: [id number] ALLERGIES: No known drug allergies. MEDICATIONS: He is on potassium supplement and insulin. He is on Lovenox for deep vein thrombosis prophylaxis. He is on DuoNeb. He is on fentanyl and propofol. He is on vasopressors. He is on zolpidem and melatonin. He is on Zosyn and there is an order for TPN. He is on fluconazole. PHYSICAL EXAMINATION: VITAL SIGNS: He was on 12 mcg of Levophed; blood pressure 106/70, O2 saturation on the monitor 99%, pulse rate of 93, and temperature 37.2. GENERAL: Thin gentleman, in no distress. HEENT: Head normocephalic, atraumatic. Pupils are reactive to light, slightly pale with jaundiced; external ears look normal; ET tube in place; moist mucous membrane. NECK: Full range of movement; trachea central; no palpable lymph node. CHEST: Air movement heard bilaterally; some rhonchi at the bases; no wheezes. ABDOMEN: Postsurgical. I did not disturb the dressing. He has a drain, a J-tube, and a wound VAC in place; slightly distended, nontender, but the patient was sedated. EXTREMITIES: Lower extremity, trace edema; no calf tenderness. SKIN: No rash. PSYCHIATRIC: Mood and affect could not be evaluated. NEUROLOGIC: He is sedated. IMAGING: He had multiple imagings done, reports were reviewed, and images of the chest x-ray were reviewed. There is some atelectasis and small effusion at the bases, which had been seen on the previous chest x-ray; ET tube in good position. He had a CT scan of the abdomen and pelvis; please see report for details. IMPRESSION: 1. Acute respiratory failure. 2. Septic shock, on Levophed. 3. Peritonitis. 4. Colon cancer, status post hemicolectomy. 5. Wound dehiscence, status post surgery. 6. History of smoking for 40 years, presumed chronic obstructive pulmonary disease. PLAN: During my visit, we trailed him briefly on pressure-support ventilation. He obviously had increased work of breathing with the use of accessory muscles, although his volumes were in the range of 400-500. Also, he is still in shock. He is still on 12 mcg of Levophed. We aborted the trial for today. We will keep him on the ventilator on the current ventilator setting, which is assist control ventilation. I did discuss with RN. We will go up on the [address] [address] CONSULTATION Name: JARETH MIKE Room: [address] ADM IN M.R.#: [id number] Admission: 08/19/19 Attend Phys: Gordon Milligan, Discharge: Date of : 60 Report #: [id number] given his abdominal surgery and try to wean the propofol down. Hopefully, also we can wean the pressors down. I am going to add steroids for him for presumed chronic obstructive pulmonary disease and to help with the septic shock. I will continue nebulization treatment. He is on antibiotic per Infectious Disease and antifungals too. We will monitor fluid status and avoid fluid overload. We will do a repeat chest x-ray and ABG. I am going to order a weaning trial for tomorrow morning. Thank you for the consult. We will continue to follow along with you. TIME SPENT: Critical care time 35 minutes. <ELECTRONICALLY SIGNED> By: Maylin Mathew MD 09/07/19 0801 0944 [id number] Larson MD /nt
[2019-09-07 09:04] LABS: BE 3.7 mmol/L (-2 to +3); PO2 82.6 mmHg (75.0-100.0); pH 7.476 (7.340-7.450)
--- NOTE | 2019-09-07 19:28 | OP ---
[address] [address] OPERATIVE REPORT Name: JARETH MIKE Room: [address] IN M.R.#: [id number] Admission: 08/19/19 Attend Phys: Gordon Milligan, Discharge: Date of : 60 Report #: [id number] THIS REPORT FOR: //name// CC: Mehrdad Milligan DATE OF SERVICE: 08/23/2019 PROCEDURE PERFORMED: Laparoscopic right hemicolectomy with ileocolonic anastomosis. PREOPERATIVE DIAGNOSES: 1. Large bowel obstruction. 2. Hepatic flexure mass. 3. Liver cyst. POSTOPERATIVE DIAGNOSES: 1. Large bowel obstruction. 2. Hepatic flexure mass. 3. Liver cyst, SURGEON: Dr. Jony Robertson. ESTATE MANAGER: Dr. Darinel Abel. ANESTHESIA: Local. ESTIMATED BLOOD LOSS: 25 mL. COMPLICATIONS: None. SPECIMENS: Right colon and terminal ileum. INDICATIONS: This is a very pleasant 59-year-old gentleman who presented with a large bowel obstruction. He was stented by Gastroenterology and was allowed to decompress. He was also allowed to undergo bowel prep and oral antibiotic therapy. This was explained to the patient that even though we do not have a pathologic diagnosis, he still needs a bowel resection given the obstruction. The risks, benefits and alternatives of the procedure were discussed with the patient. The risks discussed included but were not limited to the risk of bleeding, infection, conversion to open postoperative leak, postoperative abscess, anastomotic leak, damage to any intra-abdominal anatomy including bowel, colon, blood vessels, nerves, liver, kidney, spleen, etc. I explained to the patient that if he does have an anastomotic leak, he will have to have further surgery, the open surgery, need for prolonged hospitalization and it [place] [id number] OPERATIVE REPORT Name: JARETH MIKE Room: [address] IN [facility].#: [id number] Admission: 08/19/19 Attend Phys: Gordon Milligan, Discharge: Date of : 60 Report #: [id number] could be a life altering event. I did quote to him about a 3-5% risk for anastomotic leak with this procedure. We also discussed the risk of needing an ostomy in the future if he does have a leak. The patient had the opportunity to ask questions. Alternatives discussed included no surgery with continued stent management, but this was not recommended for long-term therapy. At the end of the discussion, the patient wished to proceed with surgery. DESCRIPTION OF PROCEDURE: After informed consent was obtained of the above, the patient was taken to the operating room and placed in supine position. General anesthesia was induced. Preprocedure antibiotics were administered and a Johnson catheter was inserted. His arms were tucked. His anterior abdomen was prepped and draped in the usual sterile fashion and a timeout was performed. The procedure began by making a 5 mm supraumbilical incision. The Veress needle was then inserted. Pneumoperitoneum was created. A 5 mm port was passed. The camera was inserted and the abdomen was inspected. On initial inspection, there was a white mass on segment 4B of the liver that was concerning. There was no peritoneal mets. There is no omental mets. The right colon mass was easily identified and this was a region that was very firm upon palpation with the laparoscopic instruments. The abdomen was free of any other findings concerning for distant metastatic spread upon initial inspection. I did consider biopsying the liver mass. However, a preoperative CT scan was consistent with hepatic cyst in the same location. The mass was very soft upon palpation and I did not feel as though this was consistent with a metastasis. Therefore, it was not biopsied. Procedure began by placing more ports. We placed a 5 mm left upper quadrant port, a 5 mm left lower quadrant port and a 5 mm suprapubic port. Next, the terminal ileum was grasped and retracted towards the patient's midline. The lateral attachments were mobilized by taking down the white line of Toldt. The patient had a very short ascending colon. The cecum was mobilized from a lateral to medial perspective by mobilizing the white line of Toldt being sure not to enter the retroperitoneum or to lift the right kidney. The colon was mobilized up towards the hepatic flexure and once up at that hepatic flexure, we then transitioned to the transverse colon. The greater omentum was mobilized off of the transverse colon. The hepatic flexure ligaments were mobilized using extreme caution, each bite we took with the laparoscopic LigaSure. We identified the duodenum and ensured that it was out of the way and out of the grasp of the stapler. We used minimal cautery in this region as possible. The colon was able to be mobilized successfully in this region and was able to be retracted all the way down into the pelvis. The duodenum was easily visualized and protected throughout. We then converted to a mini midline incision. This was done through an approximately 7 cm incision. The incision was carried down to the fascia using electrocautery. The Tony O wound protector was placed. The cecum was grasped [address] [address] OPERATIVE REPORT Name: JARETH MIKE Room: [address] IN [facility].#: [id number] Admission: 08/19/19 Attend Phys: Gordon Milligan, Discharge: Date of : 60 Report #: [id number] and brought up into the field above the patient's wound protector. The proximal transection point was identified on the small bowel. A window was made in the mesentery at the base of the small bowel and a Covidien purple load stapler was used to transect the small bowel at this position. Next, the mesentery was mobilized posteriorly in its position being sure not to devitalize remaining terminal ileum. The distal transection point was identified by transilluminating the middle colic artery. We did take the right branch of the middle colic artery. There are several enlarged lymph nodes in this distribution. The distal transection point was identified distal to the right branch of the middle colic artery and a window was made at this point. The colon was transected using a Covidien purple load stapler. The mesocolon was then scored by transilluminating the vessels and performed an oncologic resection taken in the right branch of the middle colic artery all the way at its base. The mesocolon was scored appropriately and transected using the laparoscopic LigaSure device being sure to cauterize the blood vessels very well. The ileocolic trunk was quite large; therefore, once this was skeletonized, the vessels were clamped with a right angle and suture ligated with a 2-0 silk suture stick tie. This was then transected and this freed the specimen, it was able to be passed off the field. Hemostasis was present. The bowel was then prepared for the anastomosis. The mesentery of the terminal ileum was ensured to not be twisted using extreme caution and checking it several times, the small bowel was oriented to the transverse colon in an isoperistaltic fashion. The antimesenteric borders were approximated using 0 Vicryl sutures. A colotomy was performed and an enterotomy was performed and a Datamolino purple load stapler was used to create a common enterotomy. Before firing the stapler, we did ensure that the bowel was aligned at the antimesenteric borders and that there was no mesentery or mesocolon within the grasp of the stapler. The stapler was fired creating our common enterotomy. The common enterotomy was closed using 3-0 PDS in a continuous running fashion using extreme caution to close every aspect of the common enterotomy. The common enterotomy was then secured using the Lembert sutures over the original suture line. The staple line creating the common enterotomy was also secured using Lembert sutures. The anastomosis did have a pulse on both the mesocolon and the small bowel mesentery. Bowel was viable. Hemostasis was present. It was dunked back within the abdominal cavity. We then planned for closure of the abdomen. The Tony wound protector was removed. Gloves were changed. The fascia was reapproximated in the midline using 0 PDS in a continuous running fashion, taking 0.5 x 0.5 cm advancement. The deep dermal layer at the midline wound was closed using 3-0 Vicryl in an interrupted fashion. All skin incisions were closed using 4-0 Monocryl in a subcuticular fashion. The abdomen was cleaned and dried and Dermabond was applied. The patient tolerated the procedure well. There were no adverse events [address] [address] OPERATIVE REPORT Name: JARETH MIKE Room: [address] IN M.R.#: [id number] Admission: 08/19/19 Attend Phys: Gordon Milligan, Discharge: Date of : 60 Report #: [id number] throughout the course of procedure. He was extubated and transferred to the PACU in stable condition. <ELECTRONICALLY SIGNED> By: Jony Robertson MD 09/07/19 1928 1744 1934Cwilliam Robertson MD /nt
--- NOTE | 2019-09-07 19:28 | OP ---
[facility] [address] [place] [address] OPERATIVE REPORT Name: JARETH MIKE Room: [address] IN .R.#: [id number] Admission: 08/19/19 Attend Phys: Gordon Milligan, Discharge: Date of : 60 Report #: [id number] THIS REPORT FOR: //name// CC: Mehrdad Milligan DATE OF SERVICE: 09/05/2019 PROCEDURES PERFORMED: 1. Reopening of recent laparotomy. 2. Gastrostomy feeding tube placement. 3. End-ileostomy creation. 4. Drain placement. 5. ABTHERA wound VAC placement. PREOPERATIVE DIAGNOSES: 1. Fascial dehiscence. 2. Lactic acidosis. 3. Severe tachycardia. 4. Severe abdominal distention. 5. Obstructing colon cancer, status post right hemicolectomy and subsequent repeat exploratory laparotomy. 6. Stage 3 colon cancer. 7. Severe hypoalbuminemia and protein-calorie malnutrition. 8. Sepsis. POSTOPERATIVE DIAGNOSES: 1. Fascial dehiscence. 2. Lactic acidosis. 3. Severe tachycardia. 4. Severe abdominal distention. 5. Obstructing colon cancer, status post right hemicolectomy and subsequent repeat exploratory laparotomy. 6. Stage 3 colon cancer. 7. Severe hypoalbuminemia and protein-calorie malnutrition. 8. Sepsis. SURGEON: Dr. Robertson. OIL EXPELLER: Dr. Valdez. ANESTHETIC: 1. General. 2. Local. ESTIMATED BLOOD LOSS: Less than [address] [address] OPERATIVE REPORT Name: JARETH MIKE Room: [address] IN M.R.#: [id number] Admission: 08/19/19 Attend Phys: Gordon Milligan, Discharge: Date of : 60 Report #: [id number] URINE OUTPUT: 100 mL. COMPLICATIONS: None. FINDINGS: 1. Severe feculent peritonitis. 2. Liquid enteric contents throughout the abdominal cavity. 3. Complete fascial dehiscence. 4. Stool leaking from a pinpoint hole at the anastomosis. INDICATION FOR PROCEDURE: The patient is an extremely pleasant gentleman who has unfortunately been in the hospital for quite some time recovering from surgery for an obstructing colon cancer. He had a second operation due to developing an acute abdomen following the surgery. The patient has been in the hospital recovering since, has been having ongoing abdominal symptoms. Several CT scans have been performed. No definitive leak or any evidence of a definitive leak had developed. The patient has worsened in the last 48 hours, in particular in the last 24 hours he has become severely tachycardic, has had elevated body temperature, has worsening lactic acid, worsening abdominal distention. While examining him today, his wound was opened and there was found to be bowel underneath the skin. I did discuss with them the need to go to surgery. I discussed that there is a chance he may not survive. I discussed that there is a chance he may be in the ICU on the ventilator for a prolonged period of time. He may have an open abdomen. I did discuss the need for an ostomy and for a feeding tube. Risk for further damaging any intra-abdominal anatomy. The patient had the opportunity to ask questions. He was eager to proceed as he was in a lot of pain and miserable. DESCRIPTION OF PROCEDURE: After informed consent was obtained as above, the patient was taken to the operating room and placed in the supine position. General anesthesia was induced. Preprocedural antibiotics were already administered. His midline incision mahamed were removed and the skin was opened up. The patient's bowel was immediately underneath the skin upon opening up the skin. The incision was Betadined and the skin was ChloraPrepped. The abdomen was draped in the usual sterile fashion. The abdominal cavity was explored immediately. With digital penetration of the subperitoneal plane between the peritoneum and the bowel, there was immediate expression of green particulate material. The abdomen was basically full of enteric contents and feces. The abdomen was explored. The small bowel was matted to each other with pretty strong fibrinous adhesions. The pelvis was full of [place]culent [place] [address] OPERATIVE REPORT Name: JARETH MIKE Room: [address] IN M.R.#: [id number] Admission: 08/19/19 Attend Phys: Gordon Milligan, Discharge: Date of : 60 Report #: [id number] no abscesses, however there was fluid everywhere. The next approximately 1-1/2 hours was spent mobilizing the small bowel in an attempt to find where the injury was at. The small bowel was mobilized adequately and at the right upper quadrant at the location of the anastomosis, there was found to be stool leaking from the anastomosis. This was at a spot where there was previous suture and the stool was leaking out of the anastomosis at the site where this previous suture is at. I did discuss this with my partner who came in to look at the patient as well and scrubbed and helped me. The decision was made to oversew this and plan for a diverting ileostomy. The anastomotic leak was oversewn using 0 Vicryl interrupted sutures x 3. The hole was no longer leaking any stool following completion of this. Next, the gastrostomy feeding tube was placed in standard fashion by placing a pursestring suture x 2 using 2-0 silk suture. The 18-Togolese feeding tube was brought through the abdominal wall from a previous laparoscopy incision in the left upper quadrant using a tonsil. A gastrotomy was made using electrocautery. The 18-Togolese feeding tube was then inserted into the stomach and the balloon was expanded. The stomach was then sutured to the anterior abdominal wall in four quadrants. The feeding tube was pulled up and the stomach was sitting nicely against the anterior abdominal wall. A drain was then placed in the right gutter, brought out the right lower abdomen. We then irrigated the abdominal cavity with copious amounts of warm irrigation. Throughout the entire case, probably approximately 13 liters of warm irrigation used to irrigate the abdomen. The plan was then made for creation of the ileostomy. I did discuss end ileostomy versus loop ileostomy with my partner. The decision was made to perform an end ileostomy. Therefore, approximately 20 cm proximal from the anastomosis, the small bowel was transected. Using ALFA stapler, an ostomy defect was made through the patient's anterior abdominal wall on the right of the midline wound. The end ileostomy was brought through the abdominal wall defect. The bowel was then secured there. The patient's abdomen was suctioned out all free fluid. After wound VAC was placed, the ileostomy was then matured using Lakesha sutures in four quadrants and then interrupted sutures in between that. The patient tolerated the procedure well overall. He was in critical condition. He did require up to 12 of Levophed throughout the procedure. He was left intubated due to the open abdomen and transferred to the ICU in stable condition. <ELECTRONICALLY SIGNED> By: Jony Robertson MD 09/07/191927 20 49Clmaximiliano Robertson MD /nt
[2019-09-08] VITALS (37 sets, daily range): BP systolic 92–146; BP diastolic 54–82
[2019-09-08 04:44] LABS: HEMATOCRIT 22.3 % (42.0-52.0); HEMOGLOBIN 7.6 gm/dL (14.0-18.0); MCH 32.8 pg (26.0-34.0); MCHC 34.1 g/dL (28.0-37.0); MCV 96.1 fL (80.0-100.0); MPV 8.6 fl. (7.2-11.1); RBC 2.32 mil/uL (4.50-6.00); RDW-CV 14.2 % (10.5-14.5); WBC 10.9 thou/uL (4.0-11.0)
[2019-09-08 05:10] LABS: CALCIUM 7.8 mg/dL (8.5-10.1); CREATININE 0.7 mg/dL (0.6-1.3); MAGNESIUM 2.3 mg/dL (1.8-2.4); PHOSPHORUS* 1.9 mg/dL (2.5-4.9); POTASSIUM 3.3 mmol/L (3.5-5.1)
--- NOTE | 2019-09-08 11:03 | OP ---
[address] [address] OPERATIVE REPORT Name: JARETH MIKE Room: [address] IN M.R.#: [id number] Admission: 08/19/19 Attend Phys: Gordon Milligan, Discharge: Date of : 60 Report #: [id number] THIS REPORT FOR: //name// CC: Mehrdad Milligan DATE OF SERVICE: 08/26/2019 PREOPERATIVE DIAGNOSIS: Perforated viscus. POSTOPERATIVE DIAGNOSIS: Perforated small bowel. PROCEDURE: Exploratory laparotomy with oversewing of small-bowel perforation. SURGEON: Garrick Valdez MD APPRAISAL MANAGER: Darinel Abel DO, Resident ANESTHESIA: General. ESTIMATED BLOOD LOSS: Minimal. SPECIMEN: None. INTRAOPERATIVE FINDINGS: There was a small 1 mm defect in the mid jejunum. There was almost no spillage of enteric contents, although there was a significant amount of free air. The ileocolonic anastomosis was fully intact and patent. DESCRIPTION OF PROCEDURE: After informed consent was obtained, the patient was brought to the operating room and placed supine. SCDs were placed and working, preoperative antibiotics were administered, general anesthesia was induced. The abdomen was prepped and draped in the usual sterile fashion. Midline incision was made over the previous incision above the umbilicus. Fascia was incised. Once I incised the fascia, a wilks of air came out. There was no foul odor. The abdomen was filled with serosanguineous fluid. The abdomen was then copiously irrigated with 10 liters of warm normal saline. I ran the small bowel proximally and distally from the ligament of Treitz to the ileocolonic anastomosis. Small bowel was dilated throughout. I examined the small bowel closely. In the mid jejunum, on the mesenteric side of the small bowel, there was a 1 mm perforation. There was no evidence of ischemia. All of the bowel appeared somewhat dilated but very healthy. The small bowel defect was closed with a single 3-0 Vicryl suture. It was then imbricated with a 3-0 silk in Lembert fashion. [place] [address] OPERATIVE REPORT Name: JARETH MIKE Room: [address] IN [facility].#: [id number] Admission: 08/19/19 Attend Phys: Gordon Milligan, Discharge: Date of : 60 Report #: [id number] and there was no more leakage. Again, the abdomen was examined. I again examined the ileocolonic anastomosis. It was fully intact. The small bowel was placed back into the abdomen. Fascia was closed with 0 PDS in running fashion. Skin was closed with mahamed. Sterile dressings were applied. COMPLICATIONS: None. DISPOSITION: The patient was taken to recovery in satisfactory condition. <ELECTRONICALLY SIGNED> By: Garrick Valdez MD 09/08/19 1103 1814 1828Jobella Valdez MD /nimo
--- NOTE | 2019-09-08 11:03 | CON ---
[address] [address] CONSULTATION Name: ELADIOFLORENCEJARETH Mayte Room: [address] IN .R.#: [id number] Admission: 08/19/19 Attend Phys: Gordon Milligan, Discharge: Date of : 60 Report #: [id number] THIS REPORT FOR: //name// CC: Mehrdad Milligan DATE OF SERVICE: 08/19/2019 I am seeing this patient at the request of Dr. Milligan. CHIEF COMPLAINT: Abdominal pain. HISTORY OF PRESENT ILLNESS: This is a 59-year-old man who presented with a 2-day history of abdominal pain and bloating. Pain is sharp, stabbing, located diffusely throughout the abdomen. He has had associated bloating. He denies nausea and vomiting. He also complained of diarrhea. PAST MEDICAL HISTORY: He denies any past history. His last colonoscopy was 10 years ago. PAST SURGICAL HISTORY: He has had arm and finger surgery. SOCIAL HISTORY: Positive for tobacco and alcohol use. ALLERGIES: NKDA. MEDICATIONS: Reviewed and listed in the chart. REVIEW OF SYSTEMS: A 12-point review of systems negative except for listed above in HPI. PHYSICAL EXAMINATION: VITAL SIGNS: Temperature 37.3, pulse 77, blood pressure 137/90. GENERAL: He is awake, alert, in no acute distress. HEENT: Extraocular movements are intact. Sclerae without icterus. NECK: Supple. CARDIOVASCULAR: Regular rate and rhythm. CHEST: Fair movement bilaterally. ABDOMEN: Soft, distended. Moderately tender around the umbilicus. No organomegaly. EXTREMITIES: Without clubbing, cyanosis or edema. NEUROLOGIC: Grossly intact. SKIN: Without rash or jaundice. LABORATORY DATA: White blood cell count 11.3, hemoglobin 15.6. [address] [address] CONSULTATION Name: JARETH MIKE Room: [address] IN [facility]#: [id number] Admission: 08/19/19 Attend Phys: Gordon Milligan, Discharge: Date of : 60 Report #: [id number] RADIOLOGIC FINDINGS: CT scan of the abdomen and pelvis demonstrates the suggestion of a possible apple-core lesion in the hepatic flexure. ASSESSMENT AND PLAN: A 59-year-old man with abdominal pain and bloating. CT suggests findings suggestive of a colon lesion. I would recommend GI evaluation for colonoscopy. If this is a cancer, then I will plan for surgical resection. I will follow along with you. Thank you for asking me to take part in the care of this patient. <ELECTRONICALLY SIGNED> By: Garrick Valdez MD 09/08/19 1103 170 2058Garrick Valdez MD /nt
--- NOTE | 2019-09-08 15:52 | OP ---
[address] [address] OPERATIVE REPORT Name: JARETH MIKE Room: [address] IN M.R.#: [id number] Admission: 08/19/19 Attend Phys: Gordon Milligan, Discharge: Date of : 60 Report #: [id number] THIS REPORT FOR: //name// CC: Mehrdad Milligan DATE OF SERVICE: 09/07/2019 PROCEDURES PERFORMED: 1. Abdominal washout. 2. Abdominal closure. 3. Placement of incisional wound VAC. PREOPERATIVE DIAGNOSES: Open abdomen. POSTOPERATIVE DIAGNOSIS: Open abdomen. SURGEON: Dr. Jony Robertson. PHOTO SPECIALIST: None. ANESTHESIA: General. ESTIMATED BLOOD LOSS: 10 mL. SPECIMENS REMOVED: None. COMPLICATIONS: None. FINDINGS: 1. The patient's abdomen was not recontaminated with feculent material. It is overall fairly clean. The patient did have some continued green staining of the small bowel mesentery, but no purulence and certainly no feculent recollection. 2. No ongoing leak in the right upper quadrant. INDICATIONS FOR PROCEDURE: The patient is a very pleasant gentleman who has unfortunately had a rough hospital course due to feculent peritonitis. The patient was recently taken to the operating room and found to have a leak. He was washed out and Abthera wound VAC was placed. He has been in the ICU sent on the ventilator. The patient is being brought back to the operating room today for re-exploration and possible closure. The risks, benefits and alternatives of the procedure were discussed with the patient and his family including his 2 sisters. The risks discussed included but were not limited to the risk of bleeding, infection, fascial closure with recurrent fascial dehiscence, intra-abdominal abscess development down the road, [place] [id number] OPERATIVE REPORT Name: JARETH MIKE Room: [address] IN [facility].#: [id number] Admission: 08/19/19 Attend Phys: Gordon Milligan, Discharge: Date of : 60 Report #: [id number] enterocutaneous fistula development down the road, anesthesia and . The patient had the opportunity to ask questions. He was writing notes to us and he was very coherent in the ICU, even though he was on the ventilator. The patient and his family did wish to proceed. DESCRIPTION OF PROCEDURE: After informed consent was obtained, the patient was taken to the operating room and placed in supine position. General anesthesia was induced. Preprocedure antibiotics were already being administered. His Abthera and ostomy appliance were removed and the abdomen was prepped and draped in the usual sterile fashion and a timeout was performed. The Abthera device was removed from the patient's abdominal cavity and the abdomen was explored. There was no feculent contamination. There was no ongoing leak in the right upper quadrant. The patient's small bowel was explored. There was no further injury. The bowel was drained in its entirety. The ostomy was then placed and found to be intact. The abdomen was then irrigated with approximately 8 liters of warm irrigation. The irrigation was very clear and clean. Upon completion of this, the abdomen was hemostatic. The fascia was then prepared for closure. The fascia was cleaned off approximately 1 cm from the midline to healthy fascia. The fascia was then closed using a mixture of continuous running sutures and interrupted sutures. A #1 PDS was used for the entire closure. The abdomen was closed with a continuous running stitch at the beginning and at an approximately 1-inch interval, a simple interrupted suture was placed as well. This was done throughout the entirety of the wound. There was a region near the ostomy and the umbilicus where the fascia was very denuded and hard to obtain good fascia at this location with a suture. However, there was a posterior fascial sheath that was fairly well intact. While closing the abdomen, extreme caution was then used to protect the bowel underneath. Also, while closing the abdomen, there was a continuous conversation with anesthesia regarding his ventilator pressures and his blood pressures. He remained stable and his peak pressures remained low. The fascia was closed. The wound was irrigated out. The incisional wound VAC was applied. Before closing the fascia, a second drain was placed in the left gutter down towards the pelvis. The ostomy appliance was placed. The patient tolerated the procedure well. There were no adverse events throughout the course of the procedure. The patient was left intubated and transferred to the ICU. <ELECTRONICALLY SIGNED> By: Jony Robertson MD 09/08/19 1552 17 27Clmaximiliano Robertson MD /nimo
[2019-09-09] VITALS (12 sets, daily range): BP systolic 103–133; BP diastolic 54–69
[2019-09-09 04:01] LABS: HEMATOCRIT 20.6 % (42.0-52.0); MCH 32.7 pg (26.0-34.0); MCV 96.3 fL (80.0-100.0); MPV 8.7 fl. (7.2-11.1); RBC 2.14 mil/uL (4.50-6.00); RDW-CV 14.4 % (10.5-14.5); WBC 9.1 thou/uL (4.0-11.0)
[2019-09-09 04:19] LABS: ALBUMIN 1.2 g/dL (3.4-5.0); CALCIUM 7.8 mg/dL (8.5-10.1); CREATININE 0.6 mg/dL (0.6-1.3); MAGNESIUM 2.1 mg/dL (1.8-2.4); PHOSPHORUS* 2.7 mg/dL (2.5-4.9)
[2019-09-09 04:26] LABS: POTASSIUM 2.8 mmol/L (3.5-5.1)
[2019-09-09 12:25] LABS: ALBUMIN 1.3 g/dL (3.4-5.0); CALCIUM 8.2 mg/dL (8.5-10.1); CREATININE 0.7 mg/dL (0.6-1.3); PHOSPHORUS* 2.2 mg/dL (2.5-4.9); POTASSIUM 3.3 mmol/L (3.5-5.1)
[2019-09-10] VITALS: BP 127/75
[2019-09-10 04:00] VITALS: BP 146/71
[2019-09-10 04:38] LABS: HEMATOCRIT 20.5 % (42.0-52.0); MCH 33.3 pg (26.0-34.0); MCHC 34.4 g/dL (28.0-37.0); MCV 96.7 fL (80.0-100.0); MPV 8.5 fl. (7.2-11.1); RBC 2.12 mil/uL (4.50-6.00); RDW-CV 13.9 % (10.5-14.5); WBC 10.7 thou/uL (4.0-11.0)
[2019-09-10 04:55] LABS: CALCIUM 7.8 mg/dL (8.5-10.1); CREATININE 0.7 mg/dL (0.6-1.3)
[2019-09-10 04:59] LABS: ALBUMIN 1.4 g/dL (3.4-5.0); CALCIUM 7.2 mg/dL (8.5-10.1); CREATININE 0.6 mg/dL (0.6-1.3); PHOSPHORUS* 2.8 mg/dL (2.5-4.9); POTASSIUM 3.4 mmol/L (3.5-5.1)
[2019-09-10 19:30] VITALS: BP 138/77
[2019-09-11] VITALS: BP 145/84
[2019-09-11 05:00] VITALS: BP 139/84
[2019-09-11 06:40] LABS: ABSOLUTE LYMPHOCYTES 1.5 thou/uL (0.8-5.3); ABSOLUTE MONOCYTES 0.4 thou/uL (0.0-1.2); ABSOLUTE NEUTROPHILS 10.8 thou/uL (1.6-8.1); BASOPHILS 0.3 %; EOSINOPHILS 0.4 %; HEMATOCRIT 20.2 % (42.0-52.0); LYMPHOCYTES 11.8 %; MCH 32.4 pg (26.0-34.0); MCHC 33.7 g/dL (28.0-37.0); MCV 96.2 fL (80.0-100.0); MONOCYTES 3.2 %; MPV 9.1 fl. (7.2-11.1); NUCLEATED RBCS 0 /100WBC; PLATELET COUNT* 361 thou/uL (150-400); POLYS 84.3 %; RDW-CV 14.1 % (10.5-14.5); WBC 12.8 thou/uL (4.0-11.0)
[2019-09-11 06:45] LABS: HEMOGLOBIN 6.8 gm/dL (14.0-18.0)
[2019-09-11 06:55] LABS: ALBUMIN 1.5 g/dL (3.4-5.0); CALCIUM 7.4 mg/dL (8.5-10.1); CREATININE 0.6 mg/dL (0.6-1.3); PHOSPHORUS* 2.7 mg/dL (2.5-4.9)
[2019-09-11 06:57] LABS: POTASSIUM 2.5 mmol/L (3.5-5.1)
[2019-09-11 07:03] LABS: ALBUMIN 1.5 g/dL (3.4-5.0); CREATININE 0.6 mg/dL (0.6-1.3); TOTAL BILIRUBIN 0.3 mg/dL (<0.1-1.0); TOTAL PROTEIN 5.4 g/dL (6.4-8.2)
[2019-09-11 07:08] LABS: CALCIUM 7.4 mg/dL (8.5-10.1); POTASSIUM 2.5 mmol/L (3.5-5.1)
[2019-09-11 09:25] VITALS: BP 139/71
[2019-09-11 11:30] VITALS: BP 133/80; BP 143/75; BP 143/83; BP 155/81
[2019-09-11 21:10] VITALS: BP 133/88
[2019-09-12 04:33] LABS: HEMATOCRIT 26.4 % (42.0-52.0); MCH 32.1 pg (26.0-34.0); MCHC 34.7 g/dL (28.0-37.0); MCV 92.3 fL (80.0-100.0); MPV 8.3 fl. (7.2-11.1); RBC 2.86 mil/uL (4.50-6.00); RDW-CV 16.3 % (10.5-14.5); WBC 12.4 thou/uL (4.0-11.0)
[2019-09-12 04:39] LABS: HEMOGLOBIN 9.2 gm/dL (14.0-18.0)
[2019-09-12 04:59] LABS: PREALBUMIN 23.4 mg/dL (18.0-35.7)
[2019-09-12 05:06] LABS: ALBUMIN 1.4 g/dL (3.4-5.0); CREATININE 0.5 mg/dL (0.6-1.3); POTASSIUM 3.4 mmol/L (3.5-5.1); TOTAL BILIRUBIN 0.4 mg/dL (<0.1-1.0); TOTAL PROTEIN 5.2 g/dL (6.4-8.2)
[2019-09-12 05:14] LABS: HEMATOCRIT 26.4 % (42.0-52.0); HEMOGLOBIN 9.1 gm/dL (14.0-18.0); MCH 31.7 pg (26.0-34.0); MCHC 34.5 g/dL (28.0-37.0); MCV 91.9 fL (80.0-100.0); MPV 8.6 fl. (7.2-11.1); NUCLEATED RBCS 0 /100WBC; PLATELET COUNT* 325 thou/uL (150-400); RBC 2.87 mil/uL (4.50-6.00); RDW-CV 16.5 % (10.5-14.5); WBC 12.4 thou/uL (4.0-11.0)
[2019-09-12 05:23] LABS: ALBUMIN 1.4 g/dL (3.4-5.0); CALCIUM 7.3 mg/dL (8.5-10.1); CREATININE 0.5 mg/dL (0.6-1.3); PHOSPHORUS* 2.5 mg/dL (2.5-4.9); POTASSIUM 3.8 mmol/L (3.5-5.1)
[2019-09-12 06:03] LABS: ABSOLUTE EOSINOPHILS 0.1 thou/uL (0.0-0.7); ABSOLUTE LYMPHOCYTES 1.4 thou/uL (0.8-5.3); ABSOLUTE NEUTROPHILS 10.9 thou/uL (1.6-8.1); ANISOCYTOSIS 1+; PLATELET ESTIMATE ADEQUATE; POIKILOCYTOSIS 1+
[2019-09-12 08:07] VITALS: BP 123/69
[2019-09-12 16:29] VITALS: BP 113/71
[2019-09-12 20:15] VITALS: BP 102/63
[2019-09-13 08:03] VITALS: BP 101/68
[2019-09-13 15:47] VITALS: BP 107/71
[2019-09-13 21:10] VITALS: BP 120/76
[2019-09-14 07:59] VITALS: BP 111/63
[2019-09-14 16:21] VITALS: BP 99/64
[2019-09-15 05:59] LABS: ABSOLUTE EOSINOPHILS 0.6 thou/uL (0.0-0.7); ABSOLUTE MONOCYTES 0.7 thou/uL (0.0-1.2); BASOPHILS 0.3 %; EOSINOPHILS 3.9 %; HEMATOCRIT 25.2 % (42.0-52.0); HEMOGLOBIN 8.5 gm/dL (14.0-18.0); LYMPHOCYTES 7.1 %; MCH 31.6 pg (26.0-34.0); MCHC 33.9 g/dL (28.0-37.0); MONOCYTES 5.1 %; MPV 8.4 fl. (7.2-11.1); NUCLEATED RBCS 0 /100WBC; PLATELET COUNT* 320 thou/uL (150-400); POLYS 83.6 %; RBC 2.71 mil/uL (4.50-6.00); RDW-CV 16.1 % (10.5-14.5); WBC 14.3 thou/uL (4.0-11.0)
[2019-09-15 06:02] LABS: CALCIUM 7.4 mg/dL (8.5-10.1); CREATININE 0.5 mg/dL (0.6-1.3)
[2019-09-15 06:04] LABS: POTASSIUM 2.8 mmol/L (3.5-5.1)
[2019-09-15 08:05] VITALS: BP 106/60
[2019-09-15 16:00] VITALS: BP 98/58
[2019-09-16 07:40] VITALS: BP 110/68
[2019-09-16 19:50] VITALS: BP 103/64
[2019-09-17 04:58] LABS: ABSOLUTE BASOPHILS 0.1 thou/uL (0.0-0.2); BASOPHILS 0.5 %; MCHC 33.2 g/dL (28.0-37.0)
[2019-09-17 05:00] LABS: ABSOLUTE EOSINOPHILS 0.4 thou/uL (0.0-0.7); ABSOLUTE LYMPHOCYTES 1.2 thou/uL (0.8-5.3); ABSOLUTE MONOCYTES 0.9 thou/uL (0.0-1.2); ABSOLUTE NEUTROPHILS 11.9 thou/uL (1.6-8.1); EOSINOPHILS 2.6 %; HEMATOCRIT 24.8 % (42.0-52.0); HEMOGLOBIN 8.2 gm/dL (14.0-18.0); LYMPHOCYTES 8.5 %; MCH 31.5 pg (26.0-34.0); MONOCYTES 6.5 %; MPV 8.9 fl. (7.2-11.1); NUCLEATED RBCS 0 /100WBC; PLATELET COUNT* 373 thou/uL (150-400); POLYS 81.9 %; RBC 2.61 mil/uL (4.50-6.00); RDW-CV 16.1 % (10.5-14.5); WBC 14.5 thou/uL (4.0-11.0)
[2019-09-17 05:07] LABS: ALBUMIN 1.3 g/dL (3.4-5.0); CALCIUM 7.7 mg/dL (8.5-10.1); CREATININE 0.6 mg/dL (0.6-1.3); POTASSIUM 3.8 mmol/L (3.5-5.1); TOTAL BILIRUBIN 0.4 mg/dL (<0.1-1.0); TOTAL PROTEIN 5.3 g/dL (6.4-8.2)
[2019-09-17 08:05] VITALS: BP 104/64
[2019-09-17 16:30] VITALS: BP 106/58
[2019-09-17 20:00] VITALS: BP 124/75
[2019-09-18 07:50] VITALS: BP 103/68
[2019-09-18 16:08] VITALS: BP 101/70
[2019-09-18 21:05] VITALS: BP 108/70
[2019-09-19 07:30] VITALS: BP 115/72
[2019-09-19 10:24] VITALS: BP 115/72
[2019-09-19 13:14] VITALS: BP 115/72
[2019-09-19] MEDS ORDERED: NORCO 5-325 TA1 EAC1 PO (13:23)
== END 2019-09-19 15:00 | disposition home health service (06) | DRG 853 ==
LOC: M.ERS 10:28 → M.ORTHSURG 12:26 → M.TBA-ER 12:26 → M.ICU 12:26 → M.ORTHSURG 13:54 → M.3W 09-03 15:56 → M.ICU 09-05 15:23 → M.ORTHSURG 09-09 17:48
PROVIDERS: Family Medicine; Internal Medicine; Internal Medicine Pulmonary Disease; Physician Assistant; Specialist; Surgery; ADMIT Family Medicine
PROC: 047 Lower Arteries, Dilation (ICD-10-PCS; 2019-08-21)
PROC: 0DTF4ZZ Resection of Right Large Intestine, Percutaneous Endoscopic Approach (ICD-10-PCS; principal; 2019-08-23)
PROC: 0DQ80ZZ Repair Small Intestine, Open Approach (ICD-10-PCS; 2019-08-26)
PROC: 0BH17EZ Insertion of Endotracheal Airway into Trachea, Via Natural or Artificial Opening (ICD-10-PCS; 2019-09-05)
PROC: 5A1945Z Respiratory Ventilation, 24-96 Consecutive Hours (ICD-10-PCS; 2019-09-05)
PROC: 0D1B0Z4 Bypass Ileum to Cutaneous, Open Approach (ICD-10-PCS; 2019-09-05)
PROC: 0DH63UZ Insertion of Feeding Device into Stomach, Percutaneous Approach (ICD-10-PCS; 2019-09-05)
PROC: 0WPF00Z Removal of Drainage Device from Abdominal Wall, Open Approach (ICD-10-PCS; 2019-09-07)
PROC: 0W9F00Z Drainage of Abdominal Wall with Drainage Device, Open Approach (ICD-10-PCS; 2019-09-07)
PROC: 30233N1 Transfusion of Nonautologous Red Blood Cells into Peripheral Vein, Percutaneous Approach (ICD-10-PCS; 2019-09-11)
DX: A41.9 Sepsis, unspecified organism (principal); K63.1 Perforation of intestine (nontraumatic); J96.00 Acute respiratory failure, unspecified whether with hypoxia or hypercapnia; K65.8 Other peritonitis; R65.21 Severe sepsis with septic shock; G92 Toxic encephalopathy; E43 Unspecified severe protein-calorie malnutrition; N17.9 Acute kidney failure, unspecified; K56.7 Ileus, unspecified; T81.32XA Disruption of internal operation (surgical) wound, not elsewhere classified, initial encounter; C18.9 Malignant neoplasm of colon, unspecified; E87.1 Hypo-osmolality and hyponatremia; K63.0 Abscess of intestine; D62 Acute posthemorrhagic anemia; K91.89 Other postprocedural complications and disorders of digestive system; R33.9 Retention of urine, unspecified; R14.0 Abdominal distension (gaseous); Z80.0 Family history of malignant neoplasm of digestive organs; K63.9 Disease of intestine, unspecified; K76.89 Other specified diseases of liver; E86.0 Dehydration; D72.829 Elevated white blood cell count, unspecified; E77.8 Other disorders of glycoprotein metabolism; I95.9 Hypotension, unspecified; E83.39 Other disorders of phosphorus metabolism; E88.09 Other disorders of plasma-protein metabolism, not elsewhere classified; E87.6 Hypokalemia; Z23 Encounter for immunization; Z68.24 Body mass index [BMI] 24.0-24.9, adult; Z79.899 Other long term (current) drug therapy; Y83.8 Other surgical procedures as the cause of abnormal reaction of the patient, or of later complication, without mention of misadventure at the time of the procedure; Y92.230 Patient room in hospital as the place of occurrence of the external cause; Y83.6 Removal of other organ (partial) (total) as the cause of abnormal reaction of the patient, or of later complication, without mention of misadventure at the time of the procedure

== ENCOUNTER 2019-09-23 14:26 | Inpatient (IN) | payer BC ==
[~2019-09-23] VITALS: Ht 175.3 cm; Wt 59.7 kg
--- NOTE | ~2019-09-23 | PROC ---
[facility] [address] [place] [address] PROCEDURE REPORT Name: JARETH MIKE Room: [address] IN M.R.#: [id number] Admission: 09/23/19 Attend Phys: Rudy Enriquez MD Discharge: 10/06/19 Date of : 60 Report #: [id number] THIS REPORT FOR: //name// For GI report, please see the Provation report in Perceptive 7 content. By: 0653Medical Records Staff CHARLES /GIDEON
[~2019-09-23 14:26] MED LIST: NORCO 5-325 TA1 EAC1 PO
[2019-09-23 14:32] VITALS: BP 96/60
[2019-09-23 14:58] LABS: HEMATOCRIT 29.9 % (42.0-52.0); MCH 30.9 pg (26.0-34.0); MCHC 33.5 g/dL (28.0-37.0); MCV 92.2 fL (80.0-100.0); MPV 7.6 fl. (7.2-11.1); NUCLEATED RBCS 0 /100WBC; PLATELET COUNT* 388 thou/uL (150-400); RBC 3.25 mil/uL (4.50-6.00); WBC 20.3 thou/uL (4.0-11.0)
[2019-09-23 15:10] LABS: CALCIUM 9.4 mg/dL (8.5-10.1); CREATININE 1.9 mg/dL (0.6-1.3); POTASSIUM 4.4 mmol/L (3.5-5.1)
[2019-09-23 15:14] LABS: ALBUMIN 2.3 g/dL (3.4-5.0); TOTAL BILIRUBIN 0.6 mg/dL (<0.1-1.0); TOTAL PROTEIN 8.4 g/dL (6.4-8.2)
[2019-09-23 15:18] LABS: ABSOLUTE LYMPHOCYTES 1.4 thou/uL (0.8-5.3); ABSOLUTE MONOCYTES 0.8 thou/uL (0.0-1.2); ABSOLUTE NEUTROPHILS 18.1 thou/uL (1.6-8.1); PLATELET ESTIMATE ADEQUATE
[2019-09-23 17:21] LABS: APTT 24.3 Seconds (25.0-31.3); INR 1.2
[2019-09-23 18:42] VITALS: BP 117/70
[2019-09-23 18:43] VITALS: BP 117/70
[2019-09-23 20:00] VITALS: BP 99/69
[2019-09-23 23:55] VITALS: BP 96/59
[2019-09-24 02:34] LABS: URINE BLOOD NEGATIVE (Negative); URINE CLARITY CLEAR; URINE COLOR YELLOW; URINE GLUCOSE-RANDOM NEGATIVE (Negative); URINE KETONES NEGATIVE (Negative); URINE LEUKOCYTES-REFLEX NEGATIVE (Negative); URINE NITRITE-REFLEX NEGATIVE (Negative); URINE PROTEIN TRACE (Negative); URINE SPECIFIC GRAVITY 1.025 (1.005-1.030); URINE UROBILINOGEN 0.2 E.U./dl (0.2-1.0)
[2019-09-24 02:35] LABS: URINE BILIRUBIN 1+ (Negative)
[2019-09-24 02:37] LABS: ACETEST (KETONE CONFIRMATORY) Negative (Negative)
[2019-09-24 04:00] VITALS: BP 100/68
[2019-09-24 05:10] LABS: HEMATOCRIT 24.6 % (42.0-52.0); HEMOGLOBIN 8.1 gm/dL (14.0-18.0); MCH 30.4 pg (26.0-34.0); MCHC 32.9 g/dL (28.0-37.0); MCV 92.3 fL (80.0-100.0); MPV 7.8 fl. (7.2-11.1); RBC 2.66 mil/uL (4.50-6.00); RDW-CV 16.1 % (10.5-14.5); WBC 14.4 thou/uL (4.0-11.0)
[2019-09-24 05:25] LABS: ALBUMIN 1.8 g/dL (3.4-5.0); CALCIUM 7.9 mg/dL (8.5-10.1); MAGNESIUM 1.7 mg/dL (1.8-2.4); TOTAL BILIRUBIN 0.3 mg/dL (<0.1-1.0); TOTAL PROTEIN 6.4 g/dL (6.4-8.2)
[2019-09-24 05:28] LABS: POTASSIUM 3.4 mmol/L (3.5-5.1)
--- NOTE | 2019-09-24 07:47 | EKG ---
[place] [address] ELECTROCARDIOGRAM REPORT Name: JARETH MIKE Room: [address] ADM IN [facility].#: [id number] Admission: 09/23/19 Attend Phys: Rudy Enriquez MD Discharge: Date of : 60 Report #: [id number] THIS REPORT FOR: //name// [facility] ED Test Date: 2019-09-23 Test Time: 15:09:28 Pat Name: JARETH MIKE Department: Room: [facility] Gender: M Stone Hand: ÁNGELA : 1960 Requested By: Bhargavi Mendez Order Number: [id number] MD: Alberto Diaz Measurements Intervals [place] Rate: 101 P: 261 NM: 116 QRS: 71 QRSD: 82 T: 48 QT: 356 QTc: 462 Interpretive Statements ectopic atrial tachycardia Probable left atrial enlargement RSR' in V1 or V2, right VCD or RVH Compared to ECG 08/19/2019 11:11:26 Sinus rhythm no longer present Electronically Signed On 09-24-2019 7:47:31 FELLING MACHINE OPERATOR by Alberto Diaz [email or web address] <ELECTRONICALLY SIGNED> By: Alberto Diaz MD, [facility] 09/24/19 0747 1509 1509 Alberto Diaz MD, [facility] /EPI
[2019-09-24 08:00] VITALS: BP 95/64
[2019-09-24 12:03] VITALS: BP 93/57
[2019-09-24 15:38] VITALS: BP 98/64
[2019-09-24 19:50] VITALS: BP 105/68
[2019-09-25 00:18] VITALS: BP 99/61
[2019-09-25 04:00] VITALS: BP 110/73
[2019-09-25 04:36] LABS: HEMATOCRIT 23.9 % (42.0-52.0); MCH 30.8 pg (26.0-34.0); MCHC 33.6 g/dL (28.0-37.0); MCV 91.7 fL (80.0-100.0); MPV 7.4 fl. (7.2-11.1); RBC 2.61 mil/uL (4.50-6.00); RDW-CV 16.2 % (10.5-14.5); WBC 15.9 thou/uL (4.0-11.0)
[2019-09-25 05:07] LABS: ALBUMIN 1.5 g/dL (3.4-5.0); CALCIUM 8.1 mg/dL (8.5-10.1); CREATININE 0.8 mg/dL (0.6-1.3); MAGNESIUM 1.7 mg/dL (1.8-2.4); POTASSIUM 3.7 mmol/L (3.5-5.1); TOTAL BILIRUBIN 0.3 mg/dL (<0.1-1.0); TOTAL PROTEIN 5.9 g/dL (6.4-8.2)
[2019-09-25 08:00] VITALS: BP 96/66
[2019-09-25 12:36] VITALS: BP 98/60
[2019-09-25 17:30] VITALS: BP 109/68
[2019-09-25 21:00] VITALS: BP 100/63
[2019-09-26 05:38] LABS: CALCIUM 8.2 mg/dL (8.5-10.1); CREATININE 0.7 mg/dL (0.6-1.3); MAGNESIUM 1.9 mg/dL (1.8-2.4); POTASSIUM 4.4 mmol/L (3.5-5.1)
[2019-09-26 09:24] VITALS: BP 89/54
[2019-09-26 20:15] VITALS: BP 105/71
[2019-09-27 03:50] VITALS: BP 103/59
[2019-09-27 08:00] VITALS: BP 93/42
[2019-09-27 15:58] VITALS: BP 107/74
[2019-09-27 20:00] VITALS: BP 99/59
[2019-09-28 04:56] LABS: CALCIUM 8.2 mg/dL (8.5-10.1); CREATININE 0.7 mg/dL (0.6-1.3); MAGNESIUM 1.7 mg/dL (1.8-2.4); POTASSIUM 4.2 mmol/L (3.5-5.1)
[2019-09-28 08:23] VITALS: BP 88/56
[2019-09-28 15:32] VITALS: BP 96/58
[2019-09-28 20:00] VITALS: BP 97/57
[2019-09-29 04:47] LABS: ABSOLUTE BASOPHILS 0.1 thou/uL (0.0-0.2); ABSOLUTE EOSINOPHILS 0.6 thou/uL (0.0-0.7); ABSOLUTE LYMPHOCYTES 1.6 thou/uL (0.8-5.3); ABSOLUTE MONOCYTES 0.8 thou/uL (0.0-1.2); ABSOLUTE NEUTROPHILS 6.8 thou/uL (1.6-8.1); BASOPHILS 0.8 %; EOSINOPHILS 5.7 %; HEMATOCRIT 22.7 % (42.0-52.0); HEMOGLOBIN 7.6 gm/dL (14.0-18.0); LYMPHOCYTES 16.6 %; MCH 31.1 pg (26.0-34.0); MCHC 33.6 g/dL (28.0-37.0); MCV 92.4 fL (80.0-100.0); MONOCYTES 8.2 %; MPV 7.1 fl. (7.2-11.1); NUCLEATED RBCS 0 /100WBC; PLATELET COUNT* 406 thou/uL (150-400); POLYS 68.7 %; RBC 2.46 mil/uL (4.50-6.00); RDW-CV 15.9 % (10.5-14.5); WBC 9.8 thou/uL (4.0-11.0)
[2019-09-29 05:03] LABS: ALBUMIN 1.5 g/dL (3.4-5.0); CALCIUM 8.4 mg/dL (8.5-10.1); CREATININE 0.6 mg/dL (0.6-1.3); POTASSIUM 4.5 mmol/L (3.5-5.1); TOTAL BILIRUBIN 0.2 mg/dL (<0.1-1.0); TOTAL PROTEIN 5.9 g/dL (6.4-8.2)
[2019-09-29 07:50] VITALS: BP 95/57
[2019-09-29 16:00] VITALS: BP 93/52
[2019-09-29 21:30] VITALS: BP 110/73
[2019-09-30 04:06] LABS: HEMATOCRIT 24.3 % (42.0-52.0); HEMOGLOBIN 8.1 gm/dL (14.0-18.0); MCH 30.7 pg (26.0-34.0); MCHC 33.2 g/dL (28.0-37.0); MCV 92.5 fL (80.0-100.0); MPV 7.4 fl. (7.2-11.1); RBC 2.63 mil/uL (4.50-6.00); RDW-CV 16.3 % (10.5-14.5); WBC 9.6 thou/uL (4.0-11.0)
[2019-09-30 04:20] LABS: CALCIUM 8.7 mg/dL (8.5-10.1); CREATININE 0.7 mg/dL (0.6-1.3); POTASSIUM 4.7 mmol/L (3.5-5.1)
[2019-09-30 08:00] VITALS: BP 103/64
[2019-09-30 16:00] VITALS: BP 100/66
[2019-09-30 20:10] VITALS: BP 96/60
[2019-10-01] VITALS: BP 97/64
[2019-10-01 05:03] LABS: HEMATOCRIT 23.7 % (42.0-52.0); MCH 31.1 pg (26.0-34.0); MCHC 33.7 g/dL (28.0-37.0); MCV 92.3 fL (80.0-100.0); MPV 6.8 fl. (7.2-11.1); NUCLEATED RBCS 0 /100WBC; RBC 2.57 mil/uL (4.50-6.00); RDW-CV 16.2 % (10.5-14.5); WBC 9.3 thou/uL (4.0-11.0)
[2019-10-01 05:07] LABS: PLATELET COUNT* 312 thou/uL (150-400)
[2019-10-01 05:15] LABS: CALCIUM 8.6 mg/dL (8.5-10.1); CREATININE 0.7 mg/dL (0.6-1.3); POTASSIUM 4.8 mmol/L (3.5-5.1)
[2019-10-01 06:32] LABS: ABSOLUTE EOSINOPHILS 0.6 thou/uL (0.0-0.7); ABSOLUTE LYMPHOCYTES 1.4 thou/uL (0.8-5.3); ABSOLUTE MONOCYTES 0.7 thou/uL (0.0-1.2); ABSOLUTE NEUTROPHILS 6.7 thou/uL (1.6-8.1); METAMYELOCYTES 1 %; MYELOCYTES 3 %
[2019-10-01 06:33] LABS: ANISOCYTOSIS 1+; CLUMPED PLTS OCCASIONAL; HYPOCHROMASIA 1+; PLATELET ESTIMATE ADEQUATE
[2019-10-01 08:07] VITALS: BP 94/56
[2019-10-01 20:30] VITALS: BP 96/51
[2019-10-02 04:21] VITALS: BP 96/51
[2019-10-02 04:34] LABS: HEMATOCRIT 21.7 % (42.0-52.0); HEMOGLOBIN 7.2 gm/dL (14.0-18.0); MCH 30.8 pg (26.0-34.0); MCHC 33.3 g/dL (28.0-37.0); MCV 92.4 fL (80.0-100.0); MPV 7.5 fl. (7.2-11.1); RBC 2.35 mil/uL (4.50-6.00); WBC 9.2 thou/uL (4.0-11.0)
[2019-10-02 04:48] LABS: CALCIUM 8.5 mg/dL (8.5-10.1); CREATININE 0.7 mg/dL (0.6-1.3); MAGNESIUM 1.6 mg/dL (1.8-2.4); POTASSIUM 4.4 mmol/L (3.5-5.1)
[2019-10-02 08:18] VITALS: BP 96/61
[2019-10-02 20:30] VITALS: BP 90/62
[2019-10-03 04:00] VITALS: BP 97/56
[2019-10-03 05:02] LABS: HEMATOCRIT 23.1 % (42.0-52.0); HEMOGLOBIN 7.7 gm/dL (14.0-18.0); MCH 30.7 pg (26.0-34.0); MCHC 33.5 g/dL (28.0-37.0); MCV 91.9 fL (80.0-100.0); MPV 7.7 fl. (7.2-11.1); RBC 2.51 mil/uL (4.50-6.00); RDW-CV 15.9 % (10.5-14.5); WBC 9.2 thou/uL (4.0-11.0)
[2019-10-03 05:53] LABS: CALCIUM 8.5 mg/dL (8.5-10.1); CREATININE 0.7 mg/dL (0.6-1.3); POTASSIUM 4.1 mmol/L (3.5-5.1)
[2019-10-03 08:02] VITALS: BP 105/65
[2019-10-03 15:39] VITALS: BP 96/58
[2019-10-04 04:06] LABS: ABSOLUTE BASOPHILS 0.1 thou/uL (0.0-0.2); ABSOLUTE EOSINOPHILS 0.7 thou/uL (0.0-0.7); ABSOLUTE LYMPHOCYTES 1.5 thou/uL (0.8-5.3); ABSOLUTE MONOCYTES 0.8 thou/uL (0.0-1.2); ABSOLUTE NEUTROPHILS 6.9 thou/uL (1.6-8.1); BASOPHILS 0.8 %; EOSINOPHILS 7.3 %; HEMATOCRIT 23.8 % (42.0-52.0); HEMOGLOBIN 7.8 gm/dL (14.0-18.0); MCH 30.4 pg (26.0-34.0); MCV 92.1 fL (80.0-100.0); MPV 7.2 fl. (7.2-11.1); NUCLEATED RBCS 0 /100WBC; PLATELET COUNT* 426 thou/uL (150-400); POLYS 68.9 %; RBC 2.58 mil/uL (4.50-6.00); RDW-CV 15.9 % (10.5-14.5); WBC 10.1 thou/uL (4.0-11.0)
[2019-10-04 04:33] LABS: CALCIUM 8.4 mg/dL (8.5-10.1); CREATININE 0.7 mg/dL (0.6-1.3); POTASSIUM 4.3 mmol/L (3.5-5.1)
[2019-10-04 07:40] VITALS: BP 105/66
--- NOTE | 2019-10-04 15:07 | PATH ---
[address] [address] PATHOLOGY RPT PROCEDURE Name: JUSTIN CLINE Room: [address] IN M.R.#: [id number] Admission: 09/23/19 Date of : 60 Discharge: Report #: [id number] Path Case #: [id number] [facility] Accession Number: [id number] . 01 Material submitted: . duodenum bulb - DUODENAL BULB ULCER . 01 Clinical history: . Abdominal pain . 02 Diagnosis: Duodenal bulb ulcer: - Moderate active duodenitis with prominent fundic gland metaplasia suggesting peptic ulcer disease, negative for granulomas, viral inclusions and dysplasia/adenomatous change. See comment. (DANY:pit; 10/04/2019) QT 10/04/2019 1221 Local . 02 Comment: Ron ulceration is not identified. (DANY:pit; 10/04/2019) . 02 Electronically signed: . Yosef Crowell MD, Pathologist NPI- [id number] . 01 Gross description: . The specimen is received in formalin, labeled "Justin Cline, duodenal bulb ulcer". Received are six segments of pale cortez soft tissue ranging in size from 0.1 to 0.6 cm in maximum dimensions. The specimen is submitted entirely in cassette A1. (CAA; 10/03/2019) QA/[facility] 10/03/2019 1342 Local . 02 Pathologist provided ICD-10: K29.80 . 02 CPT . 736337 Specimen Comment: A courtesy copy of this report has been sent to [phone] Specimen Comment: Report sent to Performed at: [address] [id number] MD David Whitmore MD Phone: [phone] Performed at: [address] [id number] [place] [address] PATHOLOGY RPT PROCEDURE Name: JUSTIN CLINE Room: [address] IN [facility].#: [id number] Admission: 09/23/19 Date of : 60 Discharge: Report #: [id number] Path Case #: [id number] MD Yosef Crowell MD Phone: [phone]
[2019-10-04 16:00] VITALS: BP 136/77
[2019-10-04 21:45] VITALS: BP 92/57
[2019-10-05 08:04] VITALS: BP 106/62
[2019-10-05 10:06] VITALS: BP 106/62
[2019-10-05] MEDS ORDERED: PROTONIX40 M2 PO (10:21)
[2019-10-05] MEDS ORDERED: XARELTO15 MG PO (10:23)
[2019-10-05 21:10] VITALS: BP 95/60
[2019-10-06 07:45] VITALS: BP 95/47
[2019-10-06] MEDS ORDERED: METOCLOPRA10 MG/101 PERTUBE (08:57)
[2019-10-06] MEDS ORDERED: PHENERGAN 25 MG25 M1 PO (08:57)
[2019-10-06] MEDS ORDERED: SUPER THERAVIT1 EACH PO (08:57)
[2019-10-06] MEDS ORDERED: CARAFATE 1 GM TA1 G1 PO (08:57)
[2019-10-06] MEDS ORDERED: XARELTO20 MG PO (08:59)
[2019-10-06] MEDS ORDERED: XARELTO15 MG PO (09:00)
--- NOTE | 2019-10-06 14:27 | CON ---
[address] [address] CONSULTATION Name: JARETH MIKE Room: [address] IN ..#: [id number] Admission: 09/23/19 Attend Phys: Rudy Enriquez MD Discharge: 10/06/19 Date of : 60 Report #: [id number] THIS REPORT FOR: //name// CC: Mehrdad Enriquez DATE OF SERVICE: 09/30/2019 REASON FOR CONSULTATION: Anemia. HISTORY OF PRESENT ILLNESS: This is a 59-year-old male who is known to us as my partner, Dr. Campos, recently diagnosed him with colon cancer. The patient initially underwent right hemicolectomy, but then developed anastomotic complication with abscess and peritonitis. Currently, he has a G-tube and an ostomy bag in place. His hemoglobin has been dropping, but he denies any blood in the bag or coming from his rectum. He also denies any upper GI symptoms as he denies nausea, vomiting, dysphagia, odynophagia, or GERD. Note that on his initial presentation, he had some nausea. PAST MEDICAL HISTORY: Significant for history of colon cancer, anemia, peritonitis, respiratory failure, G-tube placement, right arm tendon repair, left finger surgery, abdominal wound healing with secondary intention. ALLERGIES: No known drug allergy. MEDICATIONS: Please refer to MAR. SOCIAL HISTORY: The patient used to smoke and drink, but does not do any of them anymore since his diagnosis of cancer. He has had complications with his colon surgery and currently has a G-tube and an ostomy bag in place. FAMILY HISTORY: Significant for history of colon cancer in the mother. PHYSICAL EXAMINATION: VITAL SIGNS: Reveals normal vitals. LUNGS: Clear. CARDIOVASCULAR: Regular. ABDOMEN: Soft, nontender, nondistended. Bowel sounds are positive. Ostomy bag in place. NEUROLOGIC: The patient is alert and oriented x 3. LABORATORY DATA: Reveal sodium of 129, potassium is 4.8, BUN is 9, creatinine 0.7, glucose is 97. Liver function tests are all within normal limits. Total protein is 5.9, albumin 1.5. WBC is 9.3 with hemoglobin of 8.0, up from 7.6 and platelets of 312. [place] [address] CONSULTATION Name: JARETH MIKE Room: [address]#: [id number] Admission: 09/23/19 Attend Phys: Rudy Enriquez MD Discharge: 10/06/19 Date of : 60 Report #: [id number] The patient had a small bowel follow through on 09/26, the stomach appeared unremarkable. There was mild dilation of the loops of small bowel throughout the abdomen and delayed transit time in the colon, which may have suggested ileus. ASSESSMENT AND PLAN: The patient with anemia, maybe related to surgery, but would like to rule out gastroduodenal ulcer as a source of his anemia. We will make further recommendation based on finding. <ELECTRONICALLY SIGNED> By: Guru Tirado MD 10/06/19 1427 1052 2200Guru Tirado MD /nt
== END 2019-10-06 12:44 | disposition home health service (06) | DRG 871 ==
LOC: M.ERS 14:26 → M.ORTHSURG 16:41 → M.TBA-ER 16:41 → M.2W 18:30 → M.ORTHSURG 09-25 17:05
PROVIDERS: Family Medicine; Internal Medicine; Physician Assistant; ADMIT Internal Medicine
PROC: 0DB98ZX Excision of Duodenum, Via Natural or Artificial Opening Endoscopic, Diagnostic (ICD-10-PCS; principal; 2019-10-01)
DX: A41.9 Sepsis, unspecified organism (principal); I26.99 Other pulmonary embolism without acute cor pulmonale; E43 Unspecified severe protein-calorie malnutrition; N17.0 Acute kidney failure with tubular necrosis; K65.9 Peritonitis, unspecified; D68.69 Other thrombophilia; K56.7 Ileus, unspecified; E87.1 Hypo-osmolality and hyponatremia; I82.432 Acute embolism and thrombosis of left popliteal vein; K52.9 Noninfective gastroenteritis and colitis, unspecified; D64.9 Anemia, unspecified; E86.9 Volume depletion, unspecified; R13.10 Dysphagia, unspecified; E88.09 Other disorders of plasma-protein metabolism, not elsewhere classified; K21.0 Gastro-esophageal reflux disease with esophagitis; K44.9 Diaphragmatic hernia without obstruction or gangrene; K26.9 Duodenal ulcer, unspecified as acute or chronic, without hemorrhage or perforation; K25.9 Gastric ulcer, unspecified as acute or chronic, without hemorrhage or perforation; I82.462 Acute embolism and thrombosis of left calf muscular vein; Z90.49 Acquired absence of other specified parts of digestive tract; Z82.49 Family history of ischemic heart disease and other diseases of the circulatory system; Z87.891 Personal history of nicotine dependence

== ENCOUNTER 2019-10-13 13:21 | Inpatient (IN) | payer BC ==
[~2019-10-13] VITALS: Ht 175.3 cm; Wt 54.7 kg
[~2019-10-13 13:21] MED LIST changes: +CARAFATE 1 GM TA1 G1 PO; +METOCLOPRA10 MG/101 PERTUBE; +PHENERGAN 25 MG25 M1 PO; +PROTONIX40 M2 PO; +SUPER THERAVIT1 EACH PO; +XARELTO15 MG PO; +XARELTO20 MG PO
[2019-10-13 13:51] VITALS: BP 107/74; BP 98/67
[2019-10-13 15:55] LABS: ABSOLUTE BASOPHILS 0.1 thou/uL (0.0-0.2); ABSOLUTE EOSINOPHILS 0.1 thou/uL (0.0-0.7); ABSOLUTE LYMPHOCYTES 1.6 thou/uL (0.8-5.3); ABSOLUTE MONOCYTES 0.7 thou/uL (0.0-1.2); ABSOLUTE NEUTROPHILS 5.1 thou/uL (1.6-8.1); BASOPHILS 0.8 %; HEMATOCRIT 28.1 % (42.0-52.0); HEMOGLOBIN 9.3 gm/dL (14.0-18.0); LYMPHOCYTES 20.8 %; MCH 30.2 pg (26.0-34.0); MCHC 33.2 g/dL (28.0-37.0); MCV 90.8 fL (80.0-100.0); MONOCYTES 9.4 %; NUCLEATED RBCS 0 /100WBC; PLATELET COUNT* 592 thou/uL (150-400); RBC 3.09 mil/uL (4.50-6.00); RDW-CV 17.1 % (10.5-14.5); WBC 7.6 thou/uL (4.0-11.0)
[2019-10-13 16:01] LABS: CALCIUM 9.3 mg/dL (8.5-10.1); CREATININE 0.8 mg/dL (0.6-1.3); POTASSIUM 3.5 mmol/L (3.5-5.1)
[2019-10-13 16:05] LABS: ALBUMIN 2.6 g/dL (3.4-5.0); TOTAL BILIRUBIN 0.5 mg/dL (<0.1-1.0); TOTAL PROTEIN 7.4 g/dL (6.4-8.2)
[2019-10-13 19:34] VITALS: BP 115/65
[2019-10-13 20:00] VITALS: BP 107/73
[2019-10-14 04:50] LABS: URINE BLOOD TRACE (Negative); URINE CLARITY CLEAR; URINE COLOR YELLOW; URINE GLUCOSE-RANDOM NEGATIVE (Negative); URINE KETONES 2+ (Negative); URINE LEUKOCYTES-REFLEX NEGATIVE (Negative); URINE NITRITE-REFLEX NEGATIVE (Negative); URINE PROTEIN NEGATIVE (Negative); URINE SPECIFIC GRAVITY 1.015 (1.005-1.030); URINE UROBILINOGEN 0.2 E.U./dl (0.2-1.0)
[2019-10-14 04:51] LABS: ICTOTEST (BILI CONFIRMATORY) Negative (Negative); URINE BILIRUBIN 1+ (Negative)
[2019-10-14 07:30] VITALS: BP 117/75
[2019-10-14 20:00] VITALS: BP 91/56
[2019-10-15] VITALS: BP 95/58
[2019-10-15 07:15] VITALS: BP 122/71
[2019-10-15 16:00] VITALS: BP 91/47
[2019-10-15 17:04] LABS: ABSOLUTE BASOPHILS 0.1 thou/uL (0.0-0.2); ABSOLUTE EOSINOPHILS 0.1 thou/uL (0.0-0.7); ABSOLUTE LYMPHOCYTES 1.4 thou/uL (0.8-5.3); ABSOLUTE MONOCYTES 0.6 thou/uL (0.0-1.2); ABSOLUTE NEUTROPHILS 3.2 thou/uL (1.6-8.1); BASOPHILS 1.3 %; EOSINOPHILS 2.6 %; HEMATOCRIT 22.7 % (42.0-52.0); HEMOGLOBIN 7.6 gm/dL (14.0-18.0); LYMPHOCYTES 26.4 %; MCH 30.6 pg (26.0-34.0); MCHC 33.5 g/dL (28.0-37.0); MCV 91.5 fL (80.0-100.0); MONOCYTES 10.5 %; MPV 6.4 fl. (7.2-11.1); NUCLEATED RBCS 0 /100WBC; POLYS 59.2 %; RBC 2.49 mil/uL (4.50-6.00); RDW-CV 17.1 % (10.5-14.5); WBC 5.4 thou/uL (4.0-11.0)
[2019-10-15 17:06] LABS: PLATELET COUNT* 432 thou/uL (150-400)
[2019-10-15 17:18] LABS: ALBUMIN 1.9 g/dL (3.4-5.0); CALCIUM 7.5 mg/dL (8.5-10.1); CREATININE 0.6 mg/dL (0.6-1.3); MAGNESIUM 1.2 mg/dL (1.8-2.4); TOTAL BILIRUBIN 0.3 mg/dL (<0.1-1.0); TOTAL PROTEIN 5.5 g/dL (6.4-8.2)
[2019-10-15 17:21] LABS: POTASSIUM 2.8 mmol/L (3.5-5.1)
[2019-10-15 21:00] VITALS: BP 99/55
[2019-10-16 05:06] LABS: POTASSIUM 3.1 mmol/L (3.5-5.1)
[2019-10-16 07:15] VITALS: BP 99/67
[2019-10-16 20:09] LABS: MAGNESIUM 1.6 mg/dL (1.8-2.4); POTASSIUM 3.7 mmol/L (3.5-5.1)
[2019-10-16 20:30] VITALS: BP 97/48
[2019-10-17 08:00] VITALS: BP 97/61
--- NOTE | 2019-10-17 16:20 | CON ---
[address] [address] CONSULTATION Name: JARETH MIKE Room: [address] IN ..#: [id number] Admission: 10/13/19 Attend Phys: Dannielle Youssef MD Discharge: Date of : 60 Report #: [id number] THIS REPORT FOR: //name// CC: Mehrdad Youssef DATE OF SERVICE: 10/14/2019 HISTORY OF PRESENT ILLNESS: This is a pleasant 59-year-old gentleman, who was previously seen by our service, who is presenting for evaluation of nausea. The patient was initially seen in August of this year with abdominal distention. At that time, the patient was noted to have a partially obstructing fungating mass in the hepatic flexure. This patient underwent a colonoscopy followed by stenting of the area. This was followed by right hemicolectomy. The patient developed postsurgical complication of peritonitis and abscess formation following this. The patient has liver metastasis suggestive of stage 4 disease and is undergoing chemotherapy. The patient presents to the hospital this time for nausea and vomiting that have been persistent for the last week. The patient reports prior to admission, he had about 4-5 episodes of emesis, mostly containing consumed food and water. He denies any gale hematemesis and denies having any blood in the ostomy bag. PAST MEDICAL HISTORY: Significant for colon cancer, complicated by peritonitis, postsurgical. PAST SURGICAL HISTORY: Gastrostomy and right hemicolectomy. SOCIAL HISTORY: The patient has a history of smoking but currently is a nonsmoker; denies alcohol or recreational drug use. REVIEW OF SYSTEMS: Comprehensive 10-point review of systems is negative except for what was mentioned in the HPI. PHYSICAL EXAMINATION: VITAL SIGNS: Temperature 37.7, pulse rate 71, respirations 18, and blood pressure 91/56. GENERAL: The patient is alert, awake, oriented x3. HEENT: Pupils are equal, round, and reactive to light and accommodation. Mucous membranes are moist. There is no congestion. LUNGS: Clear to auscultation bilaterally. CARDIOVASCULAR: Rate and rhythm regular; S1 and S2 present. ABDOMEN: Soft. There is no distention, guarding, or rigidity. EXTREMITIES: Warm and well perfused. Gastrostomy and colostomy appeared to be in place. There is no significant inflammation around them. LABORATORY DATA: Hemoglobin 9.3, hematocrit 28.1, platelet count 592, [place] [address] CONSULTATION Name: CEEJARETH Mayte Room: [address] IN [facility]#: [id number] Admission: 10/13/19 Attend Phys: Dannielle Youssef MD Discharge: Date of : 60 Report #: [id number] 7.6; sodium 133, potassium 3.5, chloride 93, bicarbonate 30, BUN 17, creatinine 0.8. IMAGING: Abdomen and pelvis CT, this demonstrates persistent small bowel thickening, more so within the left abdomen with some interval improvement in the descending mesenteric edema, which may represent mild improvement in underlying nonspecific enteritis; no obstruction; segment wall thickening within the proximal to mid transverse colon suggestive of nonspecific colitis. ASSESSMENT AND PLAN: This is a pleasant 59-year-old gentleman with stage 4 colon cancer, status post right hemicolectomy, presenting with nausea and vomiting. The patient's symptoms have resolved following hospitalization and medication. I switched his Zofran to oral; resumed previous diet; no role for endoscopic intervention at this time; would continue with conservative management. Thank you for this consultation. <ELECTRONICALLY SIGNED> By: Rip Campos MD 10/17/19 1620 1058 1425Rip Campos MD /nt
[2019-10-17 20:38] VITALS: BP 93/64
[2019-10-18] VITALS: BP 97/64
[2019-10-18 04:00] VITALS: BP 100/59; BP 82/50
[2019-10-18 07:59] VITALS: BP 106/68
--- NOTE | 2019-10-18 10:04 | OP ---
[address] [place] [address] OPERATIVE REPORT Name: JARETH MIKE Mayte Room: [address] IN .R.#: [id number] Admission: 10/13/19 Attend Phys: Dannielle Youssef MD Discharge: Date of : 60 Report #: [id number] THIS REPORT FOR: //name// CC: Mehrdad Youssef DATE OF SERVICE: 10/17/2019 PROCEDURE PERFORMED: Delayed primary closure of abdominal wound. PREOPERATIVE DIAGNOSES: 1. Open abdominal wound. 2. Ileostomy. 3. Gastrostomy feeding tube. 4. Malnutrition. 5. Colon cancer. POSTPROCEDURAL DIAGNOSES: 1. Open abdominal wound. 2. Ileostomy. 3. Gastrostomy feeding tube. 4. Malnutrition. 5. Colon cancer. SURGEON: Jony Robertson MD LAB TECH: None. ANESTHESIA: 1. General 2. Local. ESTIMATED BLOOD LOSS: Less than 5 mL. URINE OUTPUT: Not measured. SPECIMENS: None. FINDINGS: Clean granulated wound bed underlying closed portion of skin and on the open portion of the wound. INDICATIONS FOR PROCEDURE: The patient is a very pleasant 59-year-old gentleman well known to myself due to previous hospitalizations. He has an open wound from previous surgery. The patient is hospitalized and would like to have his wound closed if possible. [address] [place] [address] OPERATIVE REPORT Name: JARETH MIKE Room: [address]#: [id number] Admission: 10/13/19 Attend Phys: Dannielle Youssef MD Discharge: Date of : 60 Report #: [id number] The risks, benefits and alternatives of the procedure were discussed with the patient. The risks discussed included but were not limited to the risk of wound, nonhealing, infection, bleeding, damage to underlying contents such as bowel, wound dehiscence, fascial dehiscence, anesthesia and . The patient had the opportunity to ask questions. All questions were answered to the best of my ability. At the end of the discussion, he did wish to proceed. DESCRIPTION OF PROCEDURE: After informed consent was obtained as above, the patient was taken to the operating room and placed in the supine position. General anesthesia was induced. Preprocedure antibiotics were administered. His anterior abdomen was prepped and draped in the usual sterile fashion and a timeout was performed. The previous sutures within the skin were removed. The wound bed was then carefully cleaned out using a curette. There is nice granulation tissue underneath. The wound bed was then irrigated out using warm irrigation. Using #1 Prolene, the skin edges were reapproximated using a horizontal interrupted suture. The skin did reapproximate nicely. There is a mild amount of tension on the skin towards the middle aspect of the incision; however, the skin edges did approximate without any extreme tension on the wound edges. The wound was then irrigated out again. The dressings were applied. An ostomy appliance was redressed. The patient tolerated the procedure well. There were no adverse events throughout the course of the procedure. <ELECTRONICALLY SIGNED> By: Jony Robertson MD 10/18/19 1004 1428 1823Cwilliam Robertson MD /nt
[2019-10-18 12:28] LABS: ABSOLUTE EOSINOPHILS 0.2 thou/uL (0.0-0.7); ABSOLUTE LYMPHOCYTES 1.4 thou/uL (0.8-5.3); ABSOLUTE MONOCYTES 0.5 thou/uL (0.0-1.2); ABSOLUTE NEUTROPHILS 2.9 thou/uL (1.6-8.1); BASOPHILS 0.9 %; EOSINOPHILS 3.4 %; HEMATOCRIT 25.3 % (42.0-52.0); HEMOGLOBIN 8.4 gm/dL (14.0-18.0); LYMPHOCYTES 28.3 %; MCH 30.7 pg (26.0-34.0); MCV 92.9 fL (80.0-100.0); MONOCYTES 9.2 %; NUCLEATED RBCS 0 /100WBC; PLATELET COUNT* 403 thou/uL (150-400); POLYS 58.2 %; RBC 2.73 mil/uL (4.50-6.00); RDW-CV 18.2 % (10.5-14.5); WBC 5.1 thou/uL (4.0-11.0)
[2019-10-18 12:47] LABS: CALCIUM 7.7 mg/dL (8.5-10.1); CREATININE 0.6 mg/dL (0.6-1.3); MAGNESIUM 1.6 mg/dL (1.8-2.4); POTASSIUM 3.8 mmol/L (3.5-5.1)
[2019-10-18 13:08] VITALS: BP 106/68
[2019-10-18] MEDS ORDERED: NORCO 5-325 TA1 EAC1 PO (13:18)
[2019-10-18] MEDS ORDERED: FLORASTOR250 MG PO (13:19)
[2019-10-18] MEDS ORDERED: FEOSOL325 M1 PO (13:20)
[2019-10-18] MEDS ORDERED: FOLIC ACID1 MG PO (13:21)
[2019-10-18] MEDS ORDERED: ZOFRAN4 MG PO (13:22)
[2019-10-18 14:43] VITALS: BP 106/68
== END 2019-10-18 15:57 | disposition home health service (06) | DRG 987 ==
LOC: M.ERS 13:21 → M.ORTHSURG 18:08 → M.TBA-ER 18:08 → M.ORTHSURG 19:51
PROVIDERS: Emergency Medicine; Internal Medicine; ADMIT Internal Medicine
PROC: 0JQ80ZZ Repair Abdomen Subcutaneous Tissue and Fascia, Open Approach (ICD-10-PCS; principal; 2019-10-17)
DX: C18.9 Malignant neoplasm of colon, unspecified (principal); I26.99 Other pulmonary embolism without acute cor pulmonale; E46 Unspecified protein-calorie malnutrition; Z68.1 Body mass index [BMI] 19.9 or less, adult; K52.9 Noninfective gastroenteritis and colitis, unspecified; E88.09 Other disorders of plasma-protein metabolism, not elsewhere classified; Z85.038 Personal history of other malignant neoplasm of large intestine; Z93.1 Gastrostomy status; Z82.49 Family history of ischemic heart disease and other diseases of the circulatory system; Z87.891 Personal history of nicotine dependence; Z79.899 Other long term (current) drug therapy; S31.109A Unspecified open wound of abdominal wall, unspecified quadrant without penetration into peritoneal cavity, initial encounter; X58.XXXA Exposure to other specified factors, initial encounter; Y93.89 Activity, other specified; Y92.89 Other specified places as the place of occurrence of the external cause; Y99.8 Other external cause status

== ENCOUNTER 2020-03-01 16:04 | Inpatient (IN) | payer BC ==
[~2020-03-01] VITALS: Ht 175.3 cm; Wt 49.9 kg
--- NOTE | ~2020-03-01 | CON ---
[address] [address] CONSULTATION Name: JARETH MIKE Room: [address] IN .R.#: [id number] Admission: 03/01/20 Attend Phys: Genaro Frey MD Discharge: 03/04/20 Date of : 60 Report #: [id number] THIS REPORT FOR: //name// cc: Mehrdad Darby DO Mehrdad Darby DO ~ THIS REPORT FOR: //name// CC: Mehrdad Frey DATE OF SERVICE: 03/04/2020 This is a consultation regarding colon cancer. REQUESTING PHYSICIAN: Dr. Frey. HISTORY OF PRESENT ILLNESS: The patient is a 59-year-old man who was diagnosed with stage 3 colon cancer in 08/2019. He had a hemicolectomy complicated with anastomotic leak and wound dehiscence, he was [facility] to a [facility] facility after a long hospitalization. He was readmitted in September with DVT. He was seen initially by me on first admission, we continued to follow up while he was in the hospital. He was supposed to follow up with medical oncologist in September when he was readmitted to the hospital with DVT. He saw Dr. Ball. Dr. Ball gave him an appointment for followup. We explained that he might need adjuvant chemotherapy. He never came to our office. He states that he did not have transportation. He canceled the appointment and he also has two more weeks to consider chemotherapy. He did not make an attempt to make appointment with Dr. Ball for followup. Now, he is admitted to the hospital with difficulty of swallowing. He had scans done, which showed dilation of proximal esophagus, he had an EGD, was retracted from the esophagus and this was dilated. He is feeling much better now. He had imaging studies done, which showed multiple small lung nodules. Dr. Frey is concerned regarding possibility of recurrence of colon cancer and I have consulted that. The patient is doing okay. He says he has been working now. He does not have complaints of cough. He says his appetite is better and he is gaining his strength back. He does not have complaints of abdominal pain. PAST MEDICAL HISTORY: See above. SOCIAL HISTORY: He lives alone. He does state that he does not drive. He has a sister who helps him now with his medical care, although he continues to work. PHYSICAL EXAMINATION: GENERAL: Reveals thin young man, not in acute distress. VITAL SIGNS: Blood pressure 90/52, heart rate is 55, temperature 98.5, [place] [address] [address] CONSULTATION Name: JARETH MIKE Mayte Room: [address]#: [id number] Admission: 03/01/20 Attend Phys: Genaro Frey MD Discharge: 03/04/20 Date of : 60 Report #: [id number] NECK: Supple. HEART: Normal S1, S2. LUNGS: Clear. ABDOMEN: Soft. There is no cervical or supraclavicular lymphadenopathy. MENTAL STATUS: Alert and oriented x 3. LABORATORY DATA: White count 4.2, hemoglobin 9.1, MCV 101.7, platelets 236. Sodium 149, potassium 3.7, BUN 10, creatinine 0.8. B12 og 750, folate 16.6, TIBC 187. CEA 5.0. CT of chest, abdomen reviewed. ASSESSMENT AND PLAN: History of colon cancer. I discussed prognosis and treatment options of stage 3 colon cancer with the patient. I explained that the high risk of recurrence of disease and I discussed adjuvant chemotherapy, which is more effective if the patient gets chemotherapy within 3-4 months of surgery. He does not think that he was interested in chemotherapy. He does think he was strong enough. I recommend that he needs to have surveillance with medical oncologist since his risk of recurrence is high. I have recommended a PET scan as an outpatient and follow up with Dr. Ball. He wants to make appointment with Dr. Ball on , the day which is his day off, but he cannot promise that he will be able to come and see Dr. Ball. Again, prognosis and risk of recurrence and mortality from colon cancer was discussed. I am not sure if he has good understanding of his disease or prognosis, but I emphasized the importance of oncological surveillance, in the meantime he will see Dr. Ball. Thank you very much for allowing me to participate in the care of this patient. By: 14 30Tucker Ortiz MD /nt
--- NOTE | ~2020-03-01 | CON ---
[address] [address] CONSULTATION Name: JARETH MIKE Room: [address] IN .R.#: [id number] Admission: 03/01/20 Attend Phys: Genaro Frey MD Discharge: Date of : 60 Report #: [id number] THIS REPORT FOR: //name// cc: Mehrdad Darby DO Mehrdad Darby DO ~ THIS REPORT FOR: //name// CC: Mehrdad Darby DO Genaro Frey DATE OF SERVICE: 03/02/2020 REQUESTING PHYSICIAN: Genaro Frey MD REASON FOR CONSULT: Dysphagia to both solids and liquids. HISTORY OF PRESENT ILLNESS: This is a 59-year-old male with history of dysphagia, who reports that currently he is not able to swallow much and has even spit up his secretions. He reports that for the past 2 days, his symptoms have gotten worse. He denies any other significant GI symptoms. The patient underwent right hemicolectomy with ileocolonic anastomosis back in 09/2019 due to a recently diagnosed colon cancer in 08/2019. PAST MEDICAL HISTORY: 1. Significant for history of colon cancer, status post right hemicolectomy. 2. Acute renal failure. 3. DVT. 4. Pulmonary embolism. 5. Iron deficiency. 6. G-tube placement. 7. History of anemia and respiratory failure. ALLERGIES: No known drug allergy. MEDICATIONS: Please refer to MAR. SOCIAL HISTORY: The patient has history of tobaccoism, but reports that he has not smoked since August when he was diagnosed with colon cancer. FAMILY HISTORY: Noncontributory. PHYSICAL EXAMINATION: VITAL SIGNS: Reveals normal vitals. LUNGS: Clear. CARDIOVASCULAR: [place] [address] CONSULTATION Name: JARETH MIKE Room: [address] IN ..#: [id number] Admission: 03/01/20 Attend Phys: Genaro Frey MD Discharge: Date of : 60 Report #: [id number] ABDOMEN: Soft, nontender, nondistended. Bowel sounds are positive. LABORATORY DATA: Reveal WBC of 4.3, hemoglobin 9.1, platelets 236. Sodium is 149, potassium 3.7, BUN is 8, creatinine 0.8. ASSESSMENT AND PLAN: The patient with dysphagia to both solids and liquids. He was on Eliquis, but has holded since . We will consider upper endoscopy with dilation of his esophagus and possibly Botox injection if there is hypercontractility of the lower esophageal sphincter. The patient is agreeable with plan. We will make further recommendation based on finding. By: 1201 [id number] Tirado MD /nt
[~2020-03-01 16:04] MED LIST changes: +FEOSOL325 M1 PO; +FLORASTOR250 MG PO; +FOLIC ACID1 MG PO; +ZOFRAN4 MG PO
[2020-03-01 16:12] VITALS: BP 122/64
[2020-03-01] MEDS ORDERED: PRILOSEC OTC20 MG PO (16:15)
[2020-03-01] MEDS ORDERED: AMBIEN5 MG PO (16:15)
[2020-03-01 17:14] LABS: ABSOLUTE BASOPHILS 0.1 thou/uL (0.0-0.2); ABSOLUTE MONOCYTES 0.6 thou/uL (0.0-1.2); EOSINOPHILS 0.3 %; HEMATOCRIT 27.9 % (42.0-52.0); HEMOGLOBIN 9.6 gm/dL (14.0-18.0); LYMPHOCYTES 11.5 %; MCHC 34.5 g/dL (28.0-37.0); MCV 101.4 fL (80.0-100.0); MONOCYTES 6.5 %; MPV 7.2 fl. (7.2-11.1); NUCLEATED RBCS 0 /100WBC; PLATELET COUNT* 256 thou/uL (150-400); POLYS 80.7 %; RBC 2.75 mil/uL (4.50-6.00); RDW-CV 15.8 % (10.5-14.5); WBC 8.7 thou/uL (4.0-11.0)
[2020-03-01 17:22] LABS: POTASSIUM 3.7 mmol/L (3.5-5.1)
[2020-03-01 17:27] LABS: ALBUMIN 2.3 g/dL (3.4-5.0); TOTAL BILIRUBIN 0.5 mg/dL (<0.1-1.0); TOTAL PROTEIN 5.4 g/dL (6.4-8.2)
[2020-03-01 18:38] VITALS: BP 92/59
[2020-03-01 18:45] VITALS: BP 101/68
[2020-03-01 20:30] VITALS: BP 100/62
[2020-03-01 22:19] LABS: URINE BLOOD NEGATIVE (Negative); URINE CLARITY CLEAR; URINE COLOR YELLOW; URINE GLUCOSE-RANDOM NEGATIVE (Negative); URINE KETONES 2+ (Negative); URINE LEUKOCYTES-REFLEX NEGATIVE (Negative); URINE NITRITE-REFLEX NEGATIVE (Negative); URINE PROTEIN TRACE (Negative); URINE UROBILINOGEN 0.2 E.U./dl (0.2-1.0)
[2020-03-01 22:21] LABS: ICTOTEST (BILI CONFIRMATORY) Negative (Negative); URINE BILIRUBIN 1+ (Negative)
[2020-03-02 05:01] LABS: ABSOLUTE EOSINOPHILS 0.1 thou/uL (0.0-0.7); ABSOLUTE MONOCYTES 0.8 thou/uL (0.0-1.2); ABSOLUTE NEUTROPHILS 4.1 thou/uL (1.6-8.1); BASOPHILS 0.6 %; HEMATOCRIT 28.4 % (42.0-52.0); HEMOGLOBIN 9.7 gm/dL (14.0-18.0); LYMPHOCYTES 27.6 %; MCH 34.5 pg (26.0-34.0); MCHC 34.1 g/dL (28.0-37.0); MCV 101.2 fL (80.0-100.0); MONOCYTES 11.7 %; MPV 7.4 fl. (7.2-11.1); NUCLEATED RBCS 0 /100WBC; PLATELET COUNT* 243 thou/uL (150-400); POLYS 58.1 %; RBC 2.81 mil/uL (4.50-6.00); RDW-CV 16.2 % (10.5-14.5); WBC 7.1 thou/uL (4.0-11.0)
[2020-03-02 05:15] LABS: CALCIUM 8.4 mg/dL (8.5-10.1); CREATININE 0.8 mg/dL (0.6-1.3); POTASSIUM 3.2 mmol/L (3.5-5.1)
[2020-03-02 08:30] VITALS: BP 97/60
--- NOTE | 2020-03-02 11:07 | EKG ---
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1960 Requested By: Girish Akbar Order Number: [id number] MD: Rafa Varela Measurements Intervals [place] Rate: 79 P: 73 ND: 129 QRS: 87 QRSD: 91 T: 59 QT: 369 QTc: 424 Interpretive Statements Sinus rhythm Probable left atrial enlargement RSR' in V1 or V2, right VCD Compared to ECG 09/23/2019 15:09:28 No significant changes Electronically Signed On 03-02-2020 11:05:44 CDT by Rafa Varela [email or web address] <ELECTRONICALLY SIGNED> By: Rafa Varela MD, [facility] 03/02/20 1105 1649 1649 Rafa Varela MD, [facility] /EPI
[2020-03-02 19:45] VITALS: BP 106/65
[2020-03-03 05:19] LABS: ABSOLUTE EOSINOPHILS 0.2 thou/uL (0.0-0.7); ABSOLUTE LYMPHOCYTES 1.3 thou/uL (0.8-5.3); ABSOLUTE MONOCYTES 0.6 thou/uL (0.0-1.2); BASOPHILS 0.8 %; EOSINOPHILS 4.4 %; HEMATOCRIT 26.8 % (42.0-52.0); HEMOGLOBIN 9.1 gm/dL (14.0-18.0); LYMPHOCYTES 31.3 %; MCH 34.7 pg (26.0-34.0); MCHC 34.1 g/dL (28.0-37.0); MCV 101.7 fL (80.0-100.0); MONOCYTES 15.4 %; MPV 7.9 fl. (7.2-11.1); NUCLEATED RBCS 0 /100WBC; PLATELET COUNT* 236 thou/uL (150-400); POLYS 48.1 %; RBC 2.64 mil/uL (4.50-6.00); WBC 4.2 thou/uL (4.0-11.0)
[2020-03-03 05:22] LABS: INR 1.1; PROTIME 11.1 Seconds (9.20-11.50)
[2020-03-03 05:33] LABS: CALCIUM 8.4 mg/dL (8.5-10.1); CREATININE 0.8 mg/dL (0.6-1.3); POTASSIUM 3.7 mmol/L (3.5-5.1)
[2020-03-03 08:00] VITALS: BP 99/63
[2020-03-03 15:49] VITALS: BP 95/59
[2020-03-03 20:30] VITALS: BP 95/50
[2020-03-04 08:00] VITALS: BP 90/52
[2020-03-04 08:44] VITALS: BP 90/52
[2020-03-04] MEDS ORDERED: CARAFATE 11 GM/10 M1 PO ×3 (12:31→12:40)
[2020-03-04] MEDS ORDERED: ACETAMINOPHEN PO (13:44)
[2020-03-04 14:08] VITALS: BP 90/52
== END 2020-03-04 15:30 | disposition home or self-care (01) | DRG 391 ==
LOC: M.ERS 16:04 → M.3W 17:46 → M.TBA-ER 17:46 → M.3W 18:52
PROVIDERS: Family Medicine; Internal Medicine Gastroenterology; ADMIT Internal Medicine
PROC: 0DB58ZX Excision of Esophagus, Via Natural or Artificial Opening Endoscopic, Diagnostic (ICD-10-PCS; principal; 2020-03-03)
DX: K22.2 Esophageal obstruction (principal); N17.0 Acute kidney failure with tubular necrosis; E16.2 Hypoglycemia, unspecified; K21.0 Gastro-esophageal reflux disease with esophagitis; Z90.49 Acquired absence of other specified parts of digestive tract; Z85.038 Personal history of other malignant neoplasm of large intestine; Z93.2 Ileostomy status; Z79.01 Long term (current) use of anticoagulants; Z79.899 Other long term (current) drug therapy; Z86.718 Personal history of other venous thrombosis and embolism; Z86.711 Personal history of pulmonary embolism

== ENCOUNTER → 2020-04-10 | Outpatient (CLI) | payer BC ==
[~2020-04-10] MED LIST changes: +ACETAMINOPHEN PO; +AMBIEN5 MG PO; +CARAFATE 11 GM/10 M1 PO; +PRILOSEC OTC20 MG PO
== END ==
LOC: M.LAB 16:32
PROVIDERS: ATTEND Internal Medicine Gastroenterology
DX: Z11.59 Encounter for screening for other viral diseases (principal)

== ENCOUNTER → 2020-04-13 | Outpatient (CLI) | payer BC ==
[2020-04-13 10:09] LABS: ABSOLUTE EOSINOPHILS 0.2 thou/uL (0.0-0.7); ABSOLUTE LYMPHOCYTES 1.8 thou/uL (0.8-5.3); ABSOLUTE MONOCYTES 0.7 thou/uL (0.0-1.2); ABSOLUTE NEUTROPHILS 4.1 thou/uL (1.6-8.1); BASOPHILS 0.6 %; EOSINOPHILS 3.4 %; HEMATOCRIT 32.9 % (42.0-52.0); HEMOGLOBIN 11.2 gm/dL (14.0-18.0); LYMPHOCYTES 25.9 %; MCH 34.4 pg (26.0-34.0); MCV 101.2 fL (80.0-100.0); MONOCYTES 10.7 %; MPV 6.7 fl. (7.2-11.1); NUCLEATED RBCS 0 /100WBC; PLATELET COUNT* 264 thou/uL (150-400); POLYS 59.4 %; RBC 3.26 mil/uL (4.50-6.00); RDW-CV 13.5 % (10.5-14.5)
== END ==
LOC: M.LAB 09:48
PROVIDERS: ATTEND Internal Medicine Gastroenterology
DX: D64.9 Anemia, unspecified (principal)

== ENCOUNTER → 2020-05-11 | Outpatient (CLI) | payer BC | LOC: M.LAB 16:25 | PROVIDERS: ATTEND Internal Medicine Gastroenterology | DX: Z11.59 Encounter for screening for other viral diseases (principal); R13.10 Dysphagia, unspecified ==

== ENCOUNTER → 2020-08-16 | Outpatient (CLI) | payer BC ==
[2020-08-16 10:05] LABS: HEMATOCRIT 38.9 % (42.0-52.0); HEMOGLOBIN 12.8 gm/dL (14.0-18.0); MCH 31.5 pg (26.0-34.0); MCHC 32.9 g/dL (28.0-37.0); MCV 95.8 fL (80.0-100.0); MPV 7.5 fl. (7.2-11.1); RBC 4.06 mil/uL (4.50-6.00); WBC 6.7 thou/uL (4.0-11.0)
[2020-08-16 10:15] LABS: ALBUMIN 3.5 g/dL (3.4-5.0); CALCIUM 8.9 mg/dL (8.5-10.1); CREATININE 1.2 mg/dL (0.6-1.3); POTASSIUM 4.4 mmol/L (3.5-5.1); TOTAL BILIRUBIN 0.3 mg/dL (<0.1-1.0); TOTAL PROTEIN 7.5 g/dL (6.4-8.2)
[2020-08-16 15:11] LABS: URINE BILIRUBIN NEGATIVE (Negative); URINE BLOOD NEGATIVE (Negative); URINE CLARITY CLEAR; URINE COLOR YELLOW; URINE GLUCOSE-RANDOM NEGATIVE (Negative); URINE KETONES NEGATIVE (Negative); URINE LEUKOCYTES NEGATIVE (Negative); URINE NITRITE NEGATIVE (Negative); URINE PROTEIN NEGATIVE (Negative); URINE UROBILINOGEN 0.2 E.U./dl (0.2-1.0)
[2020-08-16 15:51] LABS: BACTERIA 1-9 Few /HPF (None Seen); COARSE GRANULAR CASTS 0-3 Few /LPF (None Seen); CRYSTALS None Seen /LPF (None Seen); HYALINE CASTS 0-3 Few /LPF (None Seen); SQUAMOUS 0-3 Few /LPF (0-3); URINE RBC 0-2 Rare /HPF (0-2); URINE WBC 0-5 Rare /HPF (0-5)
== END ==
LOC: M.ULTRA 09:04
PROVIDERS: ATTEND Family Medicine
DX: C18.9 Malignant neoplasm of colon, unspecified (principal); N17.9 Acute kidney failure, unspecified

== ENCOUNTER → 2021-03-06 | Day surgery (SDC) | payer BC ==
[~2021-03-06] MED LIST changes: +CARAFATE1 GM/10 ML PO; +HYDROCODON-ACE1 EAC7 PO
[2021-03-06 10:54] LABS: ABSOLUTE EOSINOPHILS 0.6 thou/uL (0.0-0.7); ABSOLUTE LYMPHOCYTES 1.2 thou/uL (0.8-5.3); ABSOLUTE MONOCYTES 0.6 thou/uL (0.0-1.2); ABSOLUTE NEUTROPHILS 4.8 thou/uL (1.6-8.1); BASOPHILS 0.6 %; HEMATOCRIT 37.2 % (42.0-52.0); HEMOGLOBIN 12.5 gm/dL (14.0-18.0); LYMPHOCYTES 16.8 %; MCH 32.4 pg (26.0-34.0); MCHC 33.7 g/dL (28.0-37.0); MCV 96.3 fL (80.0-100.0); MONOCYTES 8.7 %; MPV 7.9 fl. (7.2-11.1); NUCLEATED RBCS 0 /100WBC; PLATELET COUNT* 222 thou/uL (150-400); POLYS 65.9 %; RBC 3.86 mil/uL (4.50-6.00); RDW-CV 14.8 % (10.5-14.5); WBC 7.2 thou/uL (4.0-11.0)
[2021-03-06 11:08] LABS: ALBUMIN 3.2 g/dL (3.4-5.0); CALCIUM 8.5 mg/dL (8.5-10.1); POTASSIUM 3.9 mmol/L (3.5-5.1); TOTAL BILIRUBIN 0.5 mg/dL (<0.1-1.0)
--- NOTE | 2021-03-06 15:57 | EKG ---
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
== END | disposition home or self-care (01) ==
LOC: M.SUR 09:46
PROVIDERS: ATTEND Surgery
DX: Z45.2 Encounter for adjustment and management of vascular access device (principal); Z85.038 Personal history of other malignant neoplasm of large intestine; D64.9 Anemia, unspecified; Z98.890 Other specified postprocedural states; Z79.899 Other long term (current) drug therapy; Z20.822 Contact with and (suspected) exposure to COVID-19; Z87.891 Personal history of nicotine dependence; Z86.711 Personal history of pulmonary embolism; Z79.01 Long term (current) use of anticoagulants; Z86.718 Personal history of other venous thrombosis and embolism